=== PATIENT | female | born 1960 | race Caucasian/White ===

== ENCOUNTER 2020-04-15 17:29 | Outpatient (REF) | payer MEDICARE, SELFPAY | END 2020-04-15 17:30 | disposition home or self-care (01) | LOC: HO.10HDLNP 17:29 | PROVIDERS: Visit Provider Internal Medicine | DX: Z20.828 Contact with and (suspected) exposure to other viral communicable diseases (principal) | CPT/HCPCS: 36415; 87635 ==

== ENCOUNTER 2020-04-27 09:02 | Outpatient (REF) | payer MEDICARE, SELFPAY ==
--- NOTE | 2020-04-27 | MM_ITS ---
EXAMINATION: BONE DENSITOMETRY CLINICAL INDICATION: Post menopausal. COMPARISON: Baseline BD dated 02/22/2018. TECHNIQUE: Using a [employer] DXA System (software version: 13.1) manufactured by [employer], dual-energy x-ray absorptiometry was performed of the lumbar spine and left hip. The images are of good technical quality. Summary results are attached. FINDINGS: AP SPINE L1-L4: Current: BMD 0.970 g/cm2, Z-score -0.6, T-score -1.7, osteopenia, 5.8% decrease from baseline (<5% change is not significant). Baseline: BMD 1.030 g/cm2. LEFT FEMUR, NECK: Current: BMD 0.878 g/cm2, Z-score 0.0, T-score -1.2, osteopenia. Baseline: BMD 0.956 g/cm2. LEFT FEMUR, TOTAL: Current: BMD 0.845 g/cm2, Z-score -0.4, T-score -1.3, osteopenia, 3.2% decrease from baseline (<5% change is not significant). Baseline: BMD 0.873 g/cm2. IDENTIFIED RISK FACTORS: Osteoporosis. Low calcium intake. Chronic glucocorticoids. Hysterectomy. Menopause. HISTORY OF FRACTURE: None listed. MEDICATIONS: Calcium supplement and/or multivitamin. Vitamin D. IMPRESSION: 1. DIAGNOSIS: Osteopenia based on the lowest T-score value of -1.7 in the lumbar spine applying World Health Organization criteria. 2. 10-YEAR FRACTURE RISK PREDICTION, FRAX: Major osteoporotic fracture (clinical spine, forearm, hip or shoulder) 12.4%. Hip fracture 1.0%. 3. Treatment Recommendations: NOF guidelines recommend consideration for treatment in postmenopausal women and men age 50 and older presenting with the following: -A hip or vertebral (clinical or morphometric) fracture. -T-score less than or equal to -2.5 at the femoral neck or spine after appropriate evaluation to exclude secondary causes. -Low bone mass at the hip or spine and a 10-year fracture probability by FRAX of greater than or equal to 3% for hip fracture or greater than or equal to 20% for major osteoporotic fracture based on the [place] adapted WHO algorithm. 4. Other Recommendations: All treatment decisions require clinical judgment and consideration of individual patient factors, including patient preferences, comorbidities, previous drug use, risk factors not captured in the FRAX model (e.g. frailty, falls, vitamin D deficiency, increased bone turnover, interval significant decline in bone density) and possible under or overestimation of fracture risk by FRAX. Additional medical evaluation for secondary cause of low bone mineral density may be appropriate. FUTURE SCAN RECOMMENDATION: People with diagnosed cases of osteoporosis or at high risk for fracture should have regular bone mineral density tests. For patients eligible for Medicare, routine testing is allowed once every 2 years. The testing frequency can be increased to one year for patients who have rapidly progressing disease, those who are receiving or discontinuing medical therapy to restore bone mass, or have additional risk factors.
--- NOTE | 2020-04-27 | MM_ITS ---
EXAMINATION: MM SCREENING DIGITAL BREAST TOMOSYNTHESIS, BILATERAL CLINICAL INFORMATION: Screening. Asymptomatic. The lifetime risk of breast cancer based on the Tyrer-Cuzick Model is 7%. COMPARISON: Mammography: 04/22/2019, 02/22/2018 TECHNIQUE: Digital breast tomosynthesis is performed in both the craniocaudal and mediolateral oblique views along with computer-aided detection (CAD). Synthesized 2D images are generated from the tomosynthesis. Additional left MLO view is provided. FINDINGS: There are scattered areas of fibroglandular density (ACR BI-RADS breast composition Category b). There are no significant masses, abnormal calcifications, or other abnormalities. There is fine fibronodular parenchymal pattern similar to prior studies. No significant changes. IMPRESSION: No mammographic evidence of malignancy. ASSESSMENT: BI-RADS 1: Negative RECOMMENDATION: Routine annual mammography screening. This patient's information was entered into a reminder system with a target due date for their next mammogram.
[2020-04-27 11:49] LABS: Cholesterol 213 mg/dL; HDL Cholesterol 57 mg/dL; LDL Cholesterol Calculated 128 mg/dl; Triglycerides 144 mg/dL
[2020-04-27 12:15] LABS: Free T4 (Free Thyroxine) 1.15 ng/dL (0.71-1.85); Thyroid Stimulating Hormone 0.99 mIU/mL (0.32-4.0); Vitamin D 25-OH Total 42.8 ng/mL (>30)
== END 2020-04-27 09:03 | disposition home or self-care (01) ==
LOC: HO.MAMMO 09:02
PROVIDERS: PCP Internal Medicine; Visit Provider Internal Medicine
DX: Z12.31 Encounter for screening mammogram for malignant neoplasm of breast (principal); Z13.820 Encounter for screening for osteoporosis; M81.0 Age-related osteoporosis without current pathological fracture; E58 Dietary calcium deficiency; E55.9 Vitamin D deficiency, unspecified; E03.9 Hypothyroidism, unspecified; E78.00 Pure hypercholesterolemia, unspecified; Z79.52 Long term (current) use of systemic steroids; Z90.710 Acquired absence of both cervix and uterus; M35.00 Sjogren syndrome, unspecified; Z78.0 Asymptomatic menopausal state
CPT/HCPCS: 77063; 77067; 77080; 80061; 82306; 84439; 84443

== ENCOUNTER 2021-01-11 08:23 | Day surgery (SDC) | payer MEDICARE, SELFPAY ==
[2021-01-05 10:30] VITALS: BMI 25.0
--- NOTE | 2021-01-10 09:05 | HO.ANESPROP2 ---
HPI - Anesthesia Eval Consult details Narrative: 60yo F for Colonoscopy PMFSH Past Medical History Medical History COVID-19 vaccine series completed Deaf HTN (hypertension) Hypothyroidism Low back pain Osteoporosis PONV (postoperative nausea and vomiting) Sjogren's syndrome Surgical History Surgical History History of hernia repair Hx of colonoscopy Hx of hysterectomy Social History Social History Patient Tobacco Use Status: Never used Tobacco Use of substances other than those prescribed or required for medical reasons: Yes Substance Use Frequency: Daily Are you DNR?: No Advance Directives: No Advance Directives Information Provided: No Advance Directives on File: No Meds Allergies Allergy/AdvReac Type Severity Reaction Status Date / Time diclofenac Allergy Unknown Verified 01/05/21 10:29 Home Medications Medication Instructions Recorded Confirmed Last Taken Type Restasis 1 drp OPHTHALMIC (EYE) BID 01/05/21 01/05/21 Unknown History hydroxychloroquine 1 tab PO DAILY 01/05/21 01/05/21 Unknown History levothyroxine 1 tab PO DAILY 01/05/21 01/05/21 01/11/21 07:30 History lisinopril 1 tab PO DAILY 01/05/21 01/05/21 Unknown History Exam Exam Date and Time: January 10, 2021 0905 Height,Weight and Vital Signs: Height 5 ft 7 in Weight 72.575 kg Assessment and Plan Assessment Anesthesia Assessment: Chart Reviewed
[2021-01-11 09:10] VITALS: BP 147/79; PULSE 74; RESP 18; TEMP 36.6; O2SAT 95
[2021-01-11] MEDS: Lactated Ringers 1,000 ML 100 ML IVCONT (09:31)
--- NOTE | 2021-01-11 09:49 | MHC.SHP ---
Pre-Procedural Eval Section A Date of Service: 01/11/21 The patient is an INPATIENT: No Changes since office visit: No Cold of Flu in the past 2 weeks, No New Medical Problems, No Changes in Medication and No Patient answered all questions The History & Physical has been completed within 30 days and I have reviewed it.: Yes Section B Chief Complaint: screening Allergies: Allergies Allergy/AdvReac Type Severity Reaction Status Date / Time diclofenac Allergy Unknown Verified 01/05/21 10:29 Plan I have reviewed the history and physical and performed a pertinent physical examination on my patient. No changes have occurred unless specified.
--- NOTE | 2021-01-11 10:09 | HO.ANESPROP2 ---
[facility] Past Medical History Medical History COVID-19 vaccine series completed Deaf HTN (hypertension) Hypothyroidism Low back pain Osteoporosis PONV (postoperative nausea and vomiting) Sjogren's syndrome Surgical History Surgical History History of hernia repair Hx of colonoscopy Hx of hysterectomy Social History Social History Patient Tobacco Use Status: Never used Tobacco Use of substances other than those prescribed or required for medical reasons: Yes Substance Use Frequency: Daily Are you DNR?: No Advance Directives: No Advance Directives Information Provided: No Advance Directives on File: No Meds Allergies Allergy/AdvReac Type Severity Reaction Status Date / Time diclofenac Allergy Unknown Verified 01/05/21 10:29 Active Medications: Current Medications Generic Name Dose Route Start Last Admin Trade Name Freq PRN Reason Stop Dose Admin Lactated Ringer's 1,000 mls @ 100 mls/hr 01/11/21 09:00 01/11/21 09:31 Lr IVCONT 100 mls/hr .Q10H KRISTEN Administration Home Medications Medication Instructions Recorded Confirmed Last Taken Type cyclosporine [Restasis] 1 drp OPHTHALMIC (EYE) BID 01/05/21 01/05/21 Unknown History hydroxychloroquine 1 tab PO DAILY 01/05/21 01/05/21 Unknown History levothyroxine 1 tab PO DAILY 01/05/21 01/05/21 01/11/21 07:30 History lisinopril 1 tab PO DAILY 01/05/21 01/05/21 Unknown History Exam Exam Date and Time: January 11, 2021 1009 Height,Weight and Vital Signs: Height 5 ft 7 in Weight 72.575 kg Last Vital Signs Temp 97.8 F 01/11/21 09:10 Pulse 74 01/11/21 09:10 Resp 18 01/11/21 09:10 BP 147/79 H 01/11/21 09:10 Pulse Ox 95 01/11/21 09:10 Airway Mallampati Class: II TM Dist: >3cm Neck ROM: Full Heart: RRR Lungs: CTA
[2021-01-11 10:25] VITALS: BP 122/94; PULSE 96; RESP 16; TEMP 36.9; O2SAT 96
--- NOTE | 2021-01-11 10:30 | P.BOP_ITS ---
Brief Operative Note Date of Service: 01/11/21 Pre-op diagnosis: screening Post-op diagnosis: same Procedure: colonoscopy Surgeon: Santino Villalobos Anesthesia: MAC Was an Assistant Administrator used for this Procedure?: No Estimated blood loss (mL): 0 Pathology: none sent Condition: stable Disposition: PACU
[2021-01-11 10:40] VITALS: BP 150/62; PULSE 65; RESP 16; TEMP 36.6; O2SAT 99
--- NOTE | 2021-01-11 20:38 | OP_ITS ---
SURGEON: Santino Villalobos MD INDICATIONS: Colon cancer screening. PREOPERATIVE DIAGNOSIS: POSTOPERATIVE DIAGNOSIS: PROCEDURE PERFORMED: Colonoscopy to the terminal ileum. ESTIMATED BLOOD LOSS: COMPLICATIONS: ANESTHESIA: ASSISTANTS: SPECIMENS: MEDICATIONS: Monitored anesthesia care. DESCRIPTION OF PROCEDURE: History and physical performed. The risks and benefits of the procedure were explained to the patient. Informed consent was obtained. The patient was placed in the left lateral decubitus position. A digital rectal exam was performed and was found to be normal. The Olympus pediatric video colonoscope was introduced into the rectum and advanced to the cecum without difficulty. The cecum was identified by transillumination, palpation, and identification of ileocecal valve. Examination was performed, and the scope was removed. She tolerated the procedure well and was taken to recovery area in stable condition. FINDINGS: The terminal ileum was examined and appeared normal. The visualized colonic mucosa was normal. The quality of the prep was good. No polyps were identified. Retroflexed examination was normal. IMPRESSION: Normal screening colonoscopy. RECOMMENDATIONS: 1. Follow up as needed. 2. Repeat colonoscopy is recommended in 10 years for average risk individuals. MD KALA Taylor/SANDOVAL / [phone]
== END 2021-01-11 11:15 | disposition home or self-care (01) ==
PROVIDERS: PCP Internal Medicine; Visit Provider Internal Medicine Gastroenterology
PROC: 0DJD8ZZ Inspection of Lower Intestinal Tract, Via Natural or Artificial Opening Endoscopic (ICD-10-PCS; CPT 45378; principal; 2021-01-11 10:10)
DX: Z12.11 Encounter for screening for malignant neoplasm of colon (principal); I10 Essential (primary) hypertension; M81.0 Age-related osteoporosis without current pathological fracture; M35.00 Sjogren syndrome, unspecified; E03.9 Hypothyroidism, unspecified; H91.90 Unspecified hearing loss, unspecified ear; Z79.899 Other long term (current) drug therapy; Z79.82 Long term (current) use of aspirin
CPT/HCPCS: G0121

== ENCOUNTER 2021-05-13 13:12 | Outpatient (REF) | payer MEDICARE, SELFPAY ==
--- NOTE | ~2021-05-13 | MM_ITS ---
EXAMINATION: MM SCREENING DIGITAL BREAST TOMOSYNTHESIS, BILATERAL CLINICAL INFORMATION: Screening. Asymptomatic. The lifetime risk of breast cancer based on the Tyrer-Cuzick Model is 5%. COMPARISON: Mammography: 04/27/2020, 04/22/2019, 02/22/2018 TECHNIQUE: Digital breast tomosynthesis is performed in both the craniocaudal and mediolateral oblique views along with computer-aided detection (CAD). Synthesized 2D images are generated from the tomosynthesis. FINDINGS: There are scattered areas of fibroglandular density (ACR BI-RADS breast composition Category b). There are no significant masses, abnormal calcifications, or other abnormalities. The axilla and skin contours are unremarkable. No significant changes. MM/MM tomosynthesis screening BI IMPRESSION: There are no significant changes from prior study. ASSESSMENT: BI-RADS 1: Negative RECOMMENDATION: Routine annual mammography screening. This patient's information was entered into a reminder system with a target due date for their next mammogram.
== END 2021-05-13 13:13 | disposition home or self-care (01) ==
LOC: HO.MAMMO 13:12
PROVIDERS: Visit Provider Internal Medicine
DX: Z12.31 Encounter for screening mammogram for malignant neoplasm of breast (principal)
CPT/HCPCS: 77063; 77067

== ENCOUNTER 2022-05-01 14:25 | Outpatient (REF) | payer MEDICARE, SELFPAY ==
[2022-05-01 16:54] LABS: Appearance Urine Cloudy; Color Urine Yellow; Glucose Urine UA Negative (Negative); Leukocyte Esterase Urine Large (3+) (Negative); Nitrite Urine Negative (Negative); PH 5.5 (5.0-9.0); UMIC TRIGGER UACC YES; Urine Blood Moderate (2+) (Negative); Urine Ketones Negative (Negative); Urine Protein 30 (1+) mg/dL (Neg-Trace)
[2022-05-01 18:13] LABS: Bacteria Urine 3+ (None Seen); Squamous Epithelial Cell Urine 0-2 /HPF (0-2); UACC Culture Trigger YES; WBC Urine >50 /HPF (0-5)
== END 2022-05-01 14:26 | disposition home or self-care (01) ==
LOC: HO.LAB 14:25
PROVIDERS: PCP Internal Medicine; Visit Provider Internal Medicine
DX: R30.0 Dysuria (principal)
CPT/HCPCS: 81001; 87086; 87088

== ENCOUNTER 2022-05-23 08:40 | Outpatient (REF) | payer MEDICARE, SELFPAY ==
--- NOTE | ~2022-05-23 | MM_ITS ---
EXAMINATION: MM SCREENING DIGITAL BREAST TOMOSYNTHESIS, BILATERAL CLINICAL INFORMATION: Screening. Asymptomatic. COMPARISON: Mammography: May 13, 2021 and studies dating back to August 25, 2015 TECHNIQUE: Digital breast tomosynthesis is performed in both the craniocaudal and mediolateral oblique views along with computer-aided detection (CAD). Synthesized 2D images are generated from the tomosynthesis. FINDINGS: There are scattered areas of fibroglandular density (ACR BI-RADS breast composition Category b). There are no significant masses, abnormal calcifications, or other abnormalities. MM/MM tomosynthesis screening BI IMPRESSION: No significant changes ASSESSMENT: BI-RADS 1: Negative RECOMMENDATION: Routine annual mammography screening. This patient's information was entered into a reminder system with a target due date for their next mammogram.
== END 2022-05-23 08:41 | disposition home or self-care (01) ==
LOC: HO.MAMMO 08:40
PROVIDERS: PCP Internal Medicine; Visit Provider Internal Medicine
DX: Z12.31 Encounter for screening mammogram for malignant neoplasm of breast (principal)
CPT/HCPCS: 77063; 77067

== ENCOUNTER 2022-07-03 07:01 | Outpatient (REF) | payer MEDICARE, SELFPAY ==
[2022-07-03 07:09] LABS: MANUAL DIFF FLAG NO
[2022-07-03 07:59] LABS: Basophils Percent Auto 0.5 % (0-2); Eosinophils Absolute Auto 0.1 X10*3/uL (0.0-0.4); Eosinophils Percent Auto 2.5 % (0-4); Hematocrit 40.4 % (37.0-47.0); Hemoglobin 13.4 g/dl (12.0-16.0); Imm Gran Abs Auto 0.01 X10*3/uL (0.00-0.03); Imm Gran Pct Auto 0.3 % (0.0-0.4); Lymphocytes Absolute Auto 0.9 X10*3/uL (1.2-4.9); Lymphocytes Percent Auto 24.3 % (20-40); Mean Corpuscular HGB Conc 33.2 g/dl (31.0-35.0); Mean Corpuscular Hemoglobin 29.3 pg (27.0-33.0); Mean Corpuscular Volume 88.4 fL (80.0-98.0); Mean Platelet Volume 8.2 fL (9.4-12.3); Monocytes Absolute Auto 0.3 X10*3/uL (0.1-1.2); Neutrophils Absolute Auto 2.3 x10*3/uL (2.0-8.3); Neutrophils Percent Auto 63.4 % (45-73); Platelet Count 213 X10*3/uL (160-400); Red Blood Count 4.57 X10*6/uL (4.20-5.50); Red Cell Distribution Width 12.6 % (11.0-16.0); White Blood Count 3.7 X10*3/uL (4.8-10.8)
[2022-07-03 08:58] LABS: Alanine Aminotransferase 14 U/L (0-31); Albumin Level 4.2 g/dL (3.5-5.0); Alkaline Phosphatase 56 U/L (39-117); Anion Gap 13 (12-20); Aspartate Amino Transferase 15 U/L (5-31); Bilirubin Total 0.8 mg/dL (0.0-1.0); Blood Urea Nitrogen 14 mg/dL (9-16); Calcium 9.7 mg/dL (8.4-10.2); Carbon Dioxide 27 mmol/L (22-29); Chloride 106 mmol/L (96-108); Cholesterol 195 mg/dL; Estimated Glomerular Filt Rate > 60; Free T4 (Free Thyroxine) 1.11 ng/dL (0.71-1.85); Glucose Random 81 mg/dL (60-115); HDL Cholesterol 65 mg/dL; LDL Cholesterol Calculated 110 mg/dl; Potassium 4.5 mmol/L (3.3-5.1); Sodium 141 mmol/L (135-145); Thyroid Stimulating Hormone 0.91 uIU/mL (0.32-4.0); Total Protein 6.4 g/dL (6.5-8.0); Triglycerides 103 mg/dL; Vitamin D 25-OH Total 39.5 ng/mL (>30)
== END 2022-07-03 07:02 | disposition home or self-care (01) ==
LOC: HO.LAB 07:01
PROVIDERS: PCP Internal Medicine; Visit Provider Internal Medicine
DX: Z00.00 Encounter for general adult medical examination without abnormal findings (principal); E03.9 Hypothyroidism, unspecified; M85.80 Other specified disorders of bone density and structure, unspecified site
CPT/HCPCS: 36415; 80053; 80061; 82306; 84439; 84443; 85025

== ENCOUNTER 2022-09-25 07:57 | Outpatient (REF) | payer MEDICARE, SELFPAY ==
--- NOTE | ~2022-09-25 | MM_ITS ---
EXAMINATION: BONE DENSITOMETRY CLINICAL INDICATION: Sjogren syndrome. COMPARISON: Previous BD dated 04/27/2020 and baseline BD dated 02/22/2018. TECHNIQUE: Using a [employer] DXA System (software version: 13.1) manufactured by [employer], dual-energy x-ray absorptiometry was performed of the lumbar spine and left hip. The images are of good technical quality. Summary results are attached. FINDINGS: AP SPINE L1-L4 (excluding L2): The data of L1-L4 has been changed to exclude the L2 vertebral body, because degenerative changes at this level may cause overestimation of lumbar spine density. Current: BMD 0.929 g/cm2, Z-score -0.7, T-score -2.0, osteopenia, 3.2% decrease from previous, 10.0% decrease from baseline (<5% change is not significant). Prior: BMD 0.960 g/cm2. Baseline: BMD 1.032 g/cm2. LEFT FEMUR, NECK: Current: BMD 0.840 g/cm2, Z-score -0.1, T-score -1.4, osteopenia. Prior: BMD 0.878 g/cm2. Baseline: BMD 0.956 g/cm2. LEFT FEMUR, TOTAL: Current: BMD 0.825 g/cm2, Z-score -0.5, T-score -1.4, osteopenia, 2.4% decrease from previous, 5.5% decrease from baseline (<5% change is not significant). Prior: BMD 0.845 g/cm2. Baseline: BMD 0.873 g/cm2. IDENTIFIED RISK FACTORS: Height loss. Menopause. Hysterectomy. Glucocorticoids (chronic). HISTORY OF FRACTURE: None listed. MEDICATIONS: Vitamin D. MM/XR DEXA axial skeleton IMPRESSION: 1. DIAGNOSIS: Osteopenia based on the lowest T-score value of -2.0 in the lumbar spine applying World Health Organization criteria. 2. 10-YEAR FRACTURE RISK PREDICTION, FRAX: Major osteoporotic fracture (clinical spine, forearm, hip or shoulder) 13.8%. Hip fracture 1.6%. 3. Treatment Recommendations: NOF guidelines recommend consideration for treatment in postmenopausal women and men age 50 and older presenting with the following: -A hip or vertebral (clinical or morphometric) fracture. -T-score less than or equal to -2.5 at the femoral neck or spine after appropriate evaluation to exclude secondary causes. -Low bone mass at the hip or spine and a 10-year fracture probability by FRAX of greater than or equal to 3% for hip fracture or greater than or equal to 20% for major osteoporotic fracture based on the [place] adapted WHO algorithm. 4. Other Recommendations: All treatment decisions require clinical judgment and consideration of individual patient factors, including patient preferences, comorbidities, previous drug use, risk factors not captured in the FRAX model (e.g. frailty, falls, vitamin D deficiency, increased bone turnover, interval significant decline in bone density) and possible under or overestimation of fracture risk by FRAX. Additional medical evaluation for secondary cause of low bone mineral density may be appropriate. FUTURE SCAN RECOMMENDATION: People with diagnosed cases of osteoporosis or at high risk for fracture should have regular bone mineral density tests. For patients eligible for Medicare, routine testing is allowed once every 2 years. The testing frequency can be increased to one year for patients who have rapidly progressing disease, those who are receiving or discontinuing medical therapy to restore bone mass, or have additional risk factors.
== END 2022-09-25 07:58 | disposition home or self-care (01) ==
LOC: HO.MAMMO 07:57
PROVIDERS: PCP Internal Medicine; Visit Provider Internal Medicine
DX: Z13.820 Encounter for screening for osteoporosis (principal); M35.00 Sjogren syndrome, unspecified; Z78.0 Asymptomatic menopausal state
CPT/HCPCS: 77080

== ENCOUNTER 2023-03-23 11:53 | Outpatient (REF) | payer MEDICARE, SELFPAY ==
[2023-03-23 13:20] LABS: MANUAL DIFF FLAG NO
[2023-03-23 13:26] LABS: Appearance Urine Clear; Color Urine Yellow; Glucose Urine UA Negative (Negative); Leukocyte Esterase Urine Trace (Negative); Nitrite Urine Negative (Negative); PH 5.5 (5.0-9.0); UMIC TRIGGER UACC YES; Urine Blood Small (1+) (Negative); Urine Ketones Negative (Negative); Urine Protein Negative (Neg-Trace)
[2023-03-23 13:30] LABS: Basophils Percent Auto 0.3 % (0-2); Eosinophils Percent Auto 0.7 % (0-4); Hemoglobin 14.1 g/dl (12.0-16.0); Imm Gran Abs Auto 0.01 X10*3/uL (0.00-0.03); Imm Gran Pct Auto 0.2 % (0.0-0.4); Lymphocytes Percent Auto 17.6 % (20-40); Mean Corpuscular HGB Conc 34.4 g/dl (31.0-35.0); Mean Corpuscular Hemoglobin 29.6 pg (27.0-33.0); Mean Corpuscular Volume 86.1 fL (80.0-98.0); Mean Platelet Volume 8.6 fL (9.4-12.3); Monocytes Absolute Auto 0.5 X10*3/uL (0.1-1.2); Monocytes Percent Auto 8.3 % (2-11); Neutrophils Absolute Auto 4.2 x10*3/uL (2.0-8.3); Neutrophils Percent Auto 72.9 % (45-73); Platelet Count 224 X10*3/uL (160-400); Red Blood Count 4.76 X10*6/uL (4.20-5.50); Red Cell Distribution Width 12.1 % (11.0-16.0); White Blood Count 5.8 X10*3/uL (4.8-10.8)
[2023-03-23 13:44] LABS: Bacteria Urine None Seen (None Seen); Hyaline Casts Urine 0-2 /LPF (0-2); RBC Urine 0-2 /HPF (0-2); Squamous Epithelial Cell Urine 0-2 /HPF (0-2); WBC Urine 0-5 /HPF (0-5)
[2023-03-23 14:06] LABS: Alanine Aminotransferase 15 U/L (0-31); Albumin Level 4.6 g/dL (3.5-5.0); Alkaline Phosphatase 64 U/L (39-117); Anion Gap 14 (12-20); Aspartate Amino Transferase 18 U/L (5-31); Bilirubin Total 0.6 mg/dL (0.0-1.0); Blood Urea Nitrogen 14 mg/dL (9-16); C Reactive Protein 0.16 mg/dL (< or = 0.50); Calcium 10.1 mg/dL (8.4-10.2); Carbon Dioxide 26 mmol/L (22-29); Chloride 102 mmol/L (96-108); Estimated Glomerular Filt Rate > 60; Glucose Random 91 mg/dL (60-115); Potassium 3.6 mmol/L (3.3-5.1); Sodium 138 mmol/L (135-145); Total Protein 7.3 g/dL (6.5-8.0)
[2023-03-23 14:07] LABS: Free T4 (Free Thyroxine) 1.09 ng/dL (0.71-1.85); Thyroid Stimulating Hormone 1.28 uIU/mL (0.32-4.0)
[2023-03-23 15:03] LABS: Erythrocyte Sedimentation Rate 5 MM/HR (0-20)
== END 2023-03-23 11:54 | disposition home or self-care (01) ==
LOC: HO.10HDL 11:53
PROVIDERS: Visit Provider Internal Medicine
DX: R51.9 Headache, unspecified (principal); I10 Essential (primary) hypertension; E03.9 Hypothyroidism, unspecified; R21 Rash and other nonspecific skin eruption; M35.00 Sjogren syndrome, unspecified; R82.90 Unspecified abnormal findings in urine
CPT/HCPCS: 36415; 80053; 81001; 84439; 84443; 85025; 85652; 86140; 87086

== ENCOUNTER 2023-05-29 09:08 | Outpatient (REF) | payer MEDICARE, SELFPAY | END 2023-05-29 09:09 | disposition home or self-care (01) | LOC: HO.MAMMO 09:08 | PROVIDERS: PCP Internal Medicine; Visit Provider Internal Medicine | DX: Z12.31 Encounter for screening mammogram for malignant neoplasm of breast (principal) | CPT/HCPCS: 77063; 77067 ==

== ENCOUNTER → 2023-05-29 09:30 | Outpatient (BNV) | payer MEDICARE, SELFPAY | PROVIDERS: PCP Internal Medicine; Visit Provider Radiology Diagnostic Radiology | DX: Z12.31 Encounter for screening mammogram for malignant neoplasm of breast (principal) | CPT/HCPCS: 77063; 77067 ==

== ENCOUNTER 2023-12-17 14:49 | Outpatient (REF) | payer OTHER, SELFPAY ==
[2023-12-17 14:58] LABS: MANUAL DIFF FLAG NO
[2023-12-17 15:35] LABS: Basophils Percent Auto 0.5 % (0-2); Eosinophils Percent Auto 0.5 % (0-4); Hematocrit 41.1 % (37.0-47.0); Hemoglobin 14.5 g/dl (12.0-16.0); Imm Gran Abs Auto 0.01 X10*3/uL (0.00-0.03); Imm Gran Pct Auto 0.2 % (0.0-0.4); Lymphocytes Absolute Auto 1.2 X10*3/uL (1.2-4.9); Lymphocytes Percent Auto 18.8 % (20-40); Mean Corpuscular HGB Conc 35.3 g/dl (31.0-35.0); Mean Corpuscular Hemoglobin 29.9 pg (27.0-33.0); Mean Corpuscular Volume 84.7 fL (80.0-98.0); Mean Platelet Volume 8.1 fL (9.4-12.3); Monocytes Absolute Auto 0.5 X10*3/uL (0.1-1.2); Monocytes Percent Auto 8.3 % (2-11); Neutrophils Absolute Auto 4.4 x10*3/uL (2.0-8.3); Neutrophils Percent Auto 71.7 % (45-73); Platelet Count 323 X10*3/uL (160-400); Red Blood Count 4.85 X10*6/uL (4.20-5.50); Red Cell Distribution Width 11.9 % (11.0-16.0); White Blood Count 6.1 X10*3/uL (4.8-10.8)
[2023-12-17 16:24] LABS: Alanine Aminotransferase 17 U/L (0-31); Albumin Level 4.8 g/dL (3.5-5.0); Alkaline Phosphatase 60 U/L (39-117); Anion Gap 14 (12-20); Aspartate Amino Transferase 20 U/L (5-31); Bilirubin Total 0.5 mg/dL (0.0-1.0); Blood Urea Nitrogen 13 mg/dL (9-16); Calcium 10.5 mg/dL (8.4-10.2); Carbon Dioxide 26 mmol/L (22-29); Chloride 102 mmol/L (96-108); Cholesterol 236 mg/dL (<200); Estimated Glomerular Filt Rate > 60; Glucose Random 108 mg/dL (60-115); Potassium 3.8 mmol/L (3.3-5.1); Sodium 138 mmol/L (135-145); Total Protein 7.9 g/dL (6.5-8.0)
[2023-12-17 16:42] LABS: Free T4 (Free Thyroxine) 1.07 ng/dL (0.71-1.85); Thyroid Stimulating Hormone 2.05 uIU/mL (0.32-4.0); Vitamin D 25-OH Total 57.4 ng/mL (>30)
== END 2023-12-17 14:50 | disposition home or self-care (01) ==
LOC: HO.LAB 14:49
PROVIDERS: PCP Internal Medicine; Visit Provider Internal Medicine
DX: I10 Essential (primary) hypertension (principal); E03.9 Hypothyroidism, unspecified; M35.00 Sjogren syndrome, unspecified
CPT/HCPCS: 36415; 80053; 82306; 82465; 84439; 84443; 85025

== ENCOUNTER 2024-02-20 15:26 | Outpatient (REF) | payer MEDICARE, SELFPAY | END 2024-02-20 15:27 | disposition home or self-care (01) | LOC: HO.SH 15:26 | PROVIDERS: Visit Provider Internal Medicine | DX: Z13.89 Encounter for screening for other disorder (principal) ==

== ENCOUNTER 2024-06-04 09:07 | Outpatient (REF) | payer OTHER, SELFPAY ==
--- NOTE | ~2024-06-04 | MM_ITS ---
EXAMINATION: MM SCREENING DIGITAL BREAST TOMOSYNTHESIS, BILATERAL CLINICAL INFORMATION: Screening. Asymptomatic. COMPARISON: Mammography: Comparison is made with available priors TECHNIQUE: Digital breast mammography with tomosynthesis is performed in both the craniocaudal and mediolateral oblique views along with computer-aided detection (CAD). FINDINGS: There are scattered areas of fibroglandular density (ACR BI-RADS breast composition Category b). There are no significant masses, abnormal calcifications, or other abnormalities. MM/MM tomosynthesis screening BI IMPRESSION: No mammographic evidence of malignancy. ASSESSMENT: BI-RADS BI-RADS 1 - Negative RECOMMENDATION: Routine annual mammography screening. 1 year F/U This examination should not preclude the clinical evaluation of a suspicious palpable abnormality. This patient's information was entered into a reminder system with a target due date for their next mammogram. Electronically signed by: Paola Jacome DO 06/11/2024 12:23 PM SONIA
== END 2024-06-04 09:08 | disposition home or self-care (01) ==
LOC: HO.MAMMO 09:07
PROVIDERS: PCP Internal Medicine; Visit Provider Internal Medicine
DX: Z12.31 Encounter for screening mammogram for malignant neoplasm of breast (principal)
CPT/HCPCS: 77063; 77067

== ENCOUNTER → 2024-06-04 09:30 | Outpatient (BNV) | payer OTHER, SELFPAY | PROVIDERS: PCP Internal Medicine; Visit Provider Internal Medicine | DX: Z12.31 Encounter for screening mammogram for malignant neoplasm of breast (principal) | CPT/HCPCS: 77063; 77067 ==

== ENCOUNTER 2024-08-15 09:45 | Outpatient (REF) | payer SELFPAY ==
--- NOTE | 2024-08-15 14:37 | MHC.AU.HA3 ---
Hearing Instrument Follow-Up- Binaural Date of Visit: 08/15/24 Right Ear: [place], Model, Color, Serial Number: Justin Crawford L 70 UP jermaine S#[id number] Electronics Engineering Technician Repair Warranty: 07/24/2027 Electronics Engineering Technician Loss and Damage Warranty: 07/24/2027 [facility] Service Plan: 07/23/25 Battery Size: 675 Earmold/Dome/CShell/SlimTip:acrylic shell Dispensed By: [facility] Date of Fittin07/23/24 Left Ear: Make, Model, Color, Serial Number: Justin Guerrierida L 70 UP jermaine S#[id number] Electronics Engineering Technician Repair Warranty: 07/24/2027 Electronics Engineering Technician Loss and Damage Warranty: 07/24/2027 [facility] Service Plan: 07/23/25 Battery Size: 675 Earmold/Dome/CShell/SlimTip: acrylic shell Dispensed By: [facility] Date of Fittin07/23/24 Follow-Up Summary: Seen for follow up. Reports left tube is too long, aid comes up over ear. Reports overall everything has been a bit too loud, she is startled by loud sounds. Notes feeling the right aid is louder than the left. Trimmed left tube. Fit improved. Ended up decreasing gain overall slightly right and increasing gain left. Decreased MPO. Kinjal will try these settings and return for additional follow up. Recommendations: Recommendations: An additional follow-up was scheduled to monitor progress. Diagnosis Code(s): Primary Diagnosis: H90.3 Bilateral Sensorineural Hearing Loss Signature: Provider: Torey Becerril, [facility]
== END 2024-08-15 09:46 | disposition home or self-care (01) ==
LOC: HO.HAP 09:45
PROVIDERS: Visit Provider Internal Medicine
DX: Z13.89 Encounter for screening for other disorder (principal)

== ENCOUNTER 2024-11-20 07:58 | Outpatient (REF) | payer MEDICARE, SELFPAY ==
--- NOTE | ~2024-11-20 | MM_ITS ---
EXAMINATION: DXA BONE DENSITY AXIAL HISTORY: OSTEOPENIA TECHNIQUE: [place] Dual energy absorptiometry (DEXA) of the lumbar spine, total left hip, and femoral neck was performed. COMPARISON: Comparison is made with the prior examination dated 09/25/2022. FINDINGS: The bone mineral density of the lumbar spine is 0.996 with a T-score of -1.5, and a Z-score of -0.1. This is indicative of osteopenia. This represents a BMD change of 2.7% compared to the prior exam. This is not statistically significant. The bone mineral density of the left total hip is 0.774 with a T-score of -1.9, and a Z-score of -0.7. This is indicative of osteopenia. This represents a BMD change of -6.2% compared to the prior exam. This is statistically significant. The bone mineral density of the left femoral neck is 0.830 with a T-score of -1.5, and a Z-score of -0.1. This is indicative of osteopenia. This represents a BMD change of -1.2% compared to the prior exam. FRACTURE RISK: The FRAX index suggests a ten year probability of major osteoporotic fracture of 9.4%, and of hip fracture 1.1%. MM/XR DEXA axial skeleton IMPRESSION: Based on bone mineral density, and according to World Health Organization (WHO) criteria, the diagnosis is consistent with osteopenia. All bone density values are in grams per centimeter squared (g/cm2). Statistically, 68% of repeat scans fall within 1 SD (+/- 0.010 g/cm2 for AP spine L1-L4) and 1 SD (+/- 0.012 g/cm2 for femur total) FRAX is a trademark of the [employer]'s [employer], a World Health Organization (WHO) Collaborating Center. Electronically signed by: Owen Barbosa MD 11/20/2024 08:56 AM EDT
--- OUTSIDE RECORDS SUMMARY | 2024-11-20 08:02 | XMS_ITS | Patient Health Record ---
Author Organization [facility] Address [address] [place] [address] Care Team Providers Care Research Geneticist Name Role Phone Ari Jean MD Primary Care Provider Santino Scott Jr Unavailable Allergies Allergen (clinical drug ingredient) Drug/Non Drug Allergy documented on EMR Reaction Allergy Type Onset Date Status diclofenac Diclofenac Unknown Drug Allergy Activ e Reason For Referral No Information Medications Medication SIG (Take, Route, Frequency, Duration) Notes Start Date End Date Status Levothyroxine Sodium 50 MCG Orally Active Vitamin D 25 MCG (1000 UT) Orally Active Lisinopril 10 MG Orally Act elizabeth Restasis 0.05 % Ophthalmic Act elizabeth Excedrin Extra Strength PRN Active Tylenol PRN Active MiraLax (colon prep) 8.3 oun ce ((238) grams mixed with Gatorade or Crystal Light orally begin at 5:00 p.m. the day before the procedure for 1 day 12/22/2020 Active Hydroxychloroquine Sulfate 2 00 MG Orally Active Immunizations Vaccine Route Administration Date Status Comme nts Influenza Unknown 04/28/2020 Administered Influenza Unknown 04/28/2020 Administered Social History Tobacco Use: Social History Observation Description Date Details (start date - stop date) Never Smoker NA - NA Tobacco Use/Smoking Question Answer Notes Patient is a nonsmoker Alcohol Screen Question Answer Notes Did you have a drink containing alcohol in the p ast year? No Points 0 Interpretation Negative Problems Problem Type SNOMED Code ICD Code Onset Dates Problem Status W/U Status Risk Notes Problem [id number] Colon cancer screening (Z12.11) Active confirmed Problem [id number] [facility] (current) use of aspirin (Z79.82) Active confirmed Plan Of Treatment Future Test Test Name Order Date COLONOSCOPY 12/22/2020 Insurance Providers Payer Name Payer Address Payer Phone Subscriber Number Group Number Insured Name Patient Relationship to Insured Coverage Start Date Coverage End Date MEDICARE OF [employer] [address] [place] [id number] STACEY MARTINEZ BOLA Self - patient is the insured Medical (General) History Medical History History ICD Code hypertension hashimotos thyroiditis sjogren syndrome osteopenia pituitary tumor hearing impaired Surgical History Surgery Date(Month/Year) hernia repair 1959 hysterectomy 1969 adenoidectomy 2002
== END 2024-11-20 07:59 | disposition home or self-care (01) ==
LOC: HO.MAMMO 07:58
PROVIDERS: PCP Internal Medicine; Visit Provider Internal Medicine Rheumatology
DX: Z13.820 Encounter for screening for osteoporosis (principal); M85.89 Other specified disorders of bone density and structure, multiple sites
CPT/HCPCS: 77080

== ENCOUNTER → 2024-11-20 08:15 | Outpatient (BNV) | payer MEDICARE, SELFPAY | PROVIDERS: PCP Internal Medicine; Visit Provider Radiology Diagnostic Radiology | DX: E28.39 Other primary ovarian failure (principal) | CPT/HCPCS: 77080 ==

== ENCOUNTER 2024-12-26 09:23 | Outpatient (AMB) | payer MEDICARE, SELFPAY ==
[2024-12-26 09:30] VITALS: BP 136/80; PULSE 64; TEMP 36.6; O2SAT 99; BMI 22.8
--- NOTE | 2024-12-26 09:30 | A.OFFPC_ITS ---
Vital Signs 12/26/24 09:30 Height 5 ft 8 in Weight 68.039 kg BMI 22.8 BP 136/80 Pulse 64 Pulse Source Pulse Oximeter Temp 98 F Temp Source Axillary Pulse Oximetry (%) 99 Oxygen Delivery Method Room Air Intake Visit Reasons: Routine Micropaleontologist Required: No Accompanied by: Self / Same As Patient Allergies diclofenac Allergy (Verified 12/26/24 09:33) Unknown Tobacco use date assessed: 12/26/24 Fall risk assessment: No Falls in past year Last assessed Fall Risk: 12/26/24 Dental Screening Dental Screen Date: 12/26/24 Did you have a dental visit in the last 12 months?: Yes Did you have a dental problem in the last 6 months where you did not have access to dental care?: No HPI HPI Comments History of Present Illness Details 64-year-old female with history of Sjogr en's syndrome, hypothyroidism, osteoporosis, hypertension, GERD presents to the office today for management of chronic conditions and to establish care. She is deaf and blunger [id number] was used for exam. Hypertension-compliant with lisinopril 10 mg daily. Blood pressure 136/80. Sjogren's syndrome-following with Dr. Sarah Chavez. Controlled on Plaquenil. She also uses medical marijuana, edibles only Hypothyroidism-on levothyroxine Osteopenia-most recent DEXA scan 11/20/2024 with FRAX 9.4%. Calcium supplement discontinued due to mild hypercalcemia. Continues on 2000 units vitamin-D daily but twice weekly does increase to 4000 units daily at the recommendation of her public relations specialist due to knee pain Concerns: Seasonal allergies-using Claritin which is helping with rhinorrhea but still has mild right-sided sinus discomfort and sinus headache. Not currently using nasal sprays or decongestants alergies bothering her sinuses last 2 days, headache, taking claritin 10mg daily. helping but still with sinus pain Health maintenance: Last DEXA scan 11/20/2024 as above-next due 11/2026 Last colonoscopy-12/2020, next due 12/2030-Dr. Villalobos ROS: General: No fevers, malaise, unintentional weight loss HEENT: see hpi Cardiovascular: No chest pain, palpitations, or leg edema Respiratory: No shortness of breath, wheezing, cough MSK: see hpi Neuro: No headaches, weakness, paresthesias Skin: No rashes or lesions EXAM: Constitutional - Awake and Alert, No apparent distress Eyes - PERRL Cardiovascular - S1S2, RRR, No edema Respiratory - Normal lung expansion, Normal respiratory effort, No respiratory distress, CTA bilaterally Extremities - no calf tenderness bilaterally, no swelling Skin - Warm/Dry Neurological - Alert & oriented x3 Psychological - Appropriate affect PFSH Medical History (Updated 12/26/24 @ 10:13 by SAMAN Hankins) GERD (gastroesophageal reflux disease) Hyperlipidemia COVID-19 vaccine series completed Low back pain PONV (postoperative nausea and vomiting) Osteoporosis Hypothyroidism Sjogren's syndrome HTN (hypertension) Deaf Surgical History History of hernia repair Hx of hysterectomy Hx of colonoscopy (~01/11/21) Social History [facility] Tobacco Use Status: Never used Tobacco e-Cigarette/Vaping Use: Never Used service: No Current occupational status: retired Cognitive needs: No Hearing needs: Yes (bilateral hearing aids ) Vision needs: Yes (rx glasses) Questionnaire PHQ-9 Over the last 2 weeks, how often have you been bothered by any of the following problems? 1. Little interest or pleasure in doing things: not at all 2. Feeling down, depressed, or hopeless: not at all 3. Trouble falling or staying asleep, or sleeping too much: more than half the days 4. Feeling tired or having little energy: more than half the days 5. Poor appetite or overeating: several days 6. Feeling bad about yourself - or that you are a failure or have let yourself or your family down: not at all 7. Trouble concentrating on things, such as reading the newspaper or watching television: not at all 8. Moving or speaking so slowly that other people could have noticed. Or the opposite - being so fidgety or restless that you have been moving around a lot more than usual: not at all 9. Thoughts that you would be better off or of hurting yourself in some way: not at all Total score: 5 Source: Developed by Drs. Owen Vicente, Caitie VieyraEliezer and colleagues, with an educational carson from [employer]. Thrive Questionnaire Date Thrive assessed: 12/26/24 I am a: Patient Within the past 12 months, did the food you bought not last and you didn't have the money to get more?: Never true Within the past 12 months, did you worry whether your food would run out before you got money to buy more?: Never true Do you have trouble paying for medicines?: No Do you have trouble getting transportation to medical appointments?: No Do you have trouble paying your heating and electricity bill?: No Do you have trouble taking care of your child, family member or friend?: No Do you have trouble with day-to-day activities such as bathing, preparing meals, shopping, managing finances, etc.?: No Are you currently unemployed and looking for a job?: No Are you interested in more education?: No THRIVE Score: 0 AUDIT C Alcohol Use Questionnaire (AUDIT-C) 1. How often do you have a drink containing alcohol?: Monthly or less 2. How many drinks containing alcohol do you have on a typical day when you are drinking?: 1 or 2 3. How often do you have six or more drinks on one occasion?: Less than monthly Total Score: 2 PARKER-7 AMB Questionnaire PARKER-7 Date PARKER - 7 assessed: 12/26/24 Feeling nervous, anxious, or on edge: 1 = Several days Not being able to stop or control worryin = Not at all Worrying too much about different things: 0 = Not at all Trouble relaxin = Several days Being so restless that it is hard to sit still: 1 = Several days Becoming easily annoyed or irritable: 1 = Several days Feeling afraid as if something awful might happen: 0 = Not at all Total PARKER-7 score (0-4 normal; 5-9 mild; 10-14 moderate; 15-21 severe): 4 Source: Developed by Drs. Owen Vicente, Caitie Vieyra, Eliezer Cruz and colleagues, with an educational carson from [employer]. Physical exam (Primary Care) Vital Signs: Last Vital Signs Temp 98 F 12/26/24 09:30 Pulse 64 12/26/24 09:30 BP 136/80 12/26/24 09:30 Pulse Ox 99 12/26/24 09:30 Oxygen Delivery Method Room Air 12/26/24 09:30 BMI result Body Mass Index 22.8 Tobacco/Smoking Status: Tobacco use Status Tobacco use date assessed 12/26/24 12/26/24 09:36 Patient Tobacco Use Status Never used Tobacco 12/26/24 09:36 e-Cigarette/Vaping Use Never Used 12/26/24 09:36 PHQ-9: PHQ-9 Score PHQ-9: Total score 5 12/26/24 09:50 Thrive Assessment: Date of Thrive Assessment Date Thrive assessed 12/26/24 12/26/24 09:38 Coding Level of Care Code New Pt Level 4 (30892) Complex EM visit Add On G2211 Diagnoses Hyperlipidemia E78.5 Osteoporosis M81.0 Hypothyroidism E03.9 HTN (hypertension) I10 GERD (gastroesophageal reflux disease) K21.9 Assessment & Plan Assessment & Plan (1) Hyperlipidemia: Code(s): E78.5 - Hyperlipidemia, unspecified Category: Medical Plan: Lipid panel ordered. (2) Osteoporosis: Code(s): M81.0 - Age-related osteoporosis without current pathological fracture Category: Medical Plan: Continue vitamin-D supplementation and recommend weight-bearing exercise. Next DEXA scan due 11/2026 (3) Hypothyroidism: Code(s): E03.9 - Hypothyroidism, unspecified Category: Medical Plan: TSH ordered. Continue levothyroxine (4) HTN (hypertension): Code(s): I10 - Essential (primary) hypertension Category: Medical Plan: Controlled. Continue lisinopril (5) GERD (gastroesophageal reflux disease): Code(s): K21.9 - Gastro-esophageal reflux disease without esophagitis Category: Medical Plan: Controlled Plan Follow-up in the office as scheduled. Labs to be completed following visit today. Continue Claritin for seasonal allergies and add Flonase/nasal sprays. Can use decongestants but recommend HBP labeled medications Orders: Orders Liver Panel Today E03.9 - Hypothyroidism, unspecified, E78.5 - Hyperlipidemia, unspecified, I10 - Essential (primary) hypertension, K21.9 - Gastro-esophageal reflux disease without esophagitis, M81.0 - Age-related osteoporosis without current pathological fracture Vitamin D 25-OH Total Today E03.9 - Hypothyroidism, unspecified, E78.5 - Hyperlipidemia, unspecified, I10 - Essential (primary) hypertension, K21.9 - Gastro-esophageal reflux disease without esophagitis, M81.0 - Age-related osteoporosis without current pathological fracture Basic Metabolic Panel Today E03.9 - Hypothyroidism, unspecified, E78.5 - Hyperlipidemia, unspecified, I10 - Essential (primary) hypertension, K21.9 - Gastro-esophageal reflux disease without esophagitis, M81.0 - Age-related osteoporosis without current pathological fracture Lipid Panel Today E03.9 - Hypothyroidism, unspecified, E78.5 - Hyperlipidemia, unspecified, I10 - Essential (primary) hypertension, K21.9 - Gastro-esophageal reflux disease without esophagitis, M81.0 - Age-related osteoporosis without current pathological fracture TSH reflex Free T4 Today E03.9 - Hypothyroidism, unspecified, E78.5 - Hyperlipidemia, unspecified, I10 - Essential (primary) hypertension, K21.9 - Gastro-esophageal reflux disease without esophagitis, M81.0 - Age-related osteoporosis without current pathological fracture Complete Blood Count Auto Diff Today E03.9 - Hypothyroidism, unspecified, E78.5 - Hyperlipidemia, unspecified, I10 - Essential (primary) hypertension, K21.9 - Gastro-esophageal reflux disease without esophagitis, M81.0 - Age-related osteoporosis without current pathological fracture Medications: New fluticasone propionate 50 mcg/actuation (Allergy Relief (fluticasone)) administer into each nostril 1 spray intranasal BID 16 grams 4RF
--- OUTSIDE RECORDS SUMMARY | 2024-12-26 09:49 | XMS_ITS | Patient Health Record ---
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 Name Role Phone Ari Jean MD Primary Care Provider Santino Scott Jr Unavailable Allergies Allergen (clinical drug ingredient) Drug/Non Drug Allergy documented on EMR Reaction Allergy Type Onset Date Status Diclofenac Unknown Drug Allergy Active Reason For Referral No Information Medications Medication [...] Problem Status W/U Status Risk Notes Problem [id number] Colon cancer screening (Z12.11) Active confirmed Problem [id number] FPC (current) use of aspirin (Z79.82) Active confirmed Plan Of Treatment Future Test Test Name Order Date COLONOSCOPY 12/22/2020 Insurance Providers Payer Name Payer Address Payer Phone Subscriber Number Group Number Insured Name Patient Relationship to Insured Coverage Start Date Coverage End Date MEDICARE OF [employer] [address] [place] [id number] [employer] TRAN Self - patient is the insured Medical (General) History Medical History History ICD Code hypertension hashimotos thyroiditis sjogren syndrome osteopenia pituitary tumor hearing impaired Surgical History Surgery Date(Month/Year) hernia repair 1959 hysterectomy 1969 adenoidectomy 2002
== END 2024-12-26 10:29 | disposition home or self-care (01) ==
LOC: HO.HMCHD 09:23
PROVIDERS: PCP Internal Medicine; Visit Provider Physician Assistant
DX: E78.5 Hyperlipidemia, unspecified (principal); M81.0 Age-related osteoporosis without current pathological fracture; E03.9 Hypothyroidism, unspecified; I10 Essential (primary) hypertension; K21.9 Gastro-esophageal reflux disease without esophagitis

== ENCOUNTER → 2024-12-26 09:23 | Outpatient (BNVA) | payer MEDICARE, SELFPAY | PROVIDERS: PCP Internal Medicine; Visit Provider Physician Assistant | DX: Z13.89 Encounter for screening for other disorder (principal) ==

== ENCOUNTER 2024-12-26 10:12 | Outpatient (REF) | payer MEDICARE, SELFPAY ==
[2024-12-26 13:08] LABS: MANUAL DIFF FLAG NO
[2024-12-26 13:15] LABS: Basophils Percent Auto 0.8 % (0-2); Eosinophils Absolute Auto 0.1 X10*3/uL (0.0-0.4); Hematocrit 41.8 % (37.0-47.0); Hemoglobin 14.3 g/dl (12.0-16.0); Imm Gran Abs Auto 0.01 X10*3/uL (0.00-0.03); Imm Gran Pct Auto 0.2 % (0.0-0.4); Lymphocytes Absolute Auto 1.2 X10*3/uL (1.2-4.9); Lymphocytes Percent Auto 21.9 % (20-40); Mean Corpuscular HGB Conc 34.2 g/dl (31.0-35.0); Mean Corpuscular Volume 87.6 fL (80.0-98.0); Mean Platelet Volume 8.1 fL (9.4-12.3); Monocytes Absolute Auto 0.4 X10*3/uL (0.1-1.2); Monocytes Percent Auto 6.8 % (2-11); Neutrophils Absolute Auto 3.7 x10*3/uL (2.0-8.3); Neutrophils Percent Auto 69.3 % (45-73); Platelet Count 228 X10*3/uL (160-400); Red Blood Count 4.77 X10*6/uL (4.20-5.50); Red Cell Distribution Width 12.4 % (11.0-16.0); White Blood Count 5.3 X10*3/uL (4.8-10.8)
[2024-12-26 14:00] LABS: Alanine Aminotransferase 21 U/L (0-31); Alkaline Phosphatase 61 U/L (39-117); Anion Gap 12 (12-20); Aspartate Amino Transferase 23 U/L (5-31); Bilirubin Direct 0.3 mg/dL (0.0-0.5); Bilirubin Total 0.9 mg/dL (0.0-1.0); Blood Urea Nitrogen 14 mg/dL (9-16); Calcium 10.2 mg/dL (8.4-10.2); Carbon Dioxide 28 mmol/L (22-29); Chloride 103 mmol/L (96-108); Cholesterol 268 mg/dL (<200); Estimated Glomerular Filt Rate > 60; Glucose Random 91 mg/dL (60-115); HDL Cholesterol 74 mg/dL (>40); LDL Cholesterol Calculated 172 mg/dL (<100); Potassium 3.6 mmol/L (3.3-5.1); Sodium 139 mmol/L (135-145); TSH reflex Free T4 1.02 uIU/mL (0.32-4.0); Total Protein 7.4 g/dL (6.5-8.0); Triglycerides 112 mg/dL (<150); Vitamin D 25-OH Total 58.6 ng/mL (>30)
== END 2024-12-26 10:13 | disposition home or self-care (01) ==
LOC: HO.10HDL 10:12
PROVIDERS: Visit Provider Physician Assistant
DX: E78.5 Hyperlipidemia, unspecified (principal); M81.0 Age-related osteoporosis without current pathological fracture; E03.9 Hypothyroidism, unspecified; I10 Essential (primary) hypertension; K21.9 Gastro-esophageal reflux disease without esophagitis; Z79.899 Other long term (current) drug therapy
CPT/HCPCS: 36415; 80048; 80061; 80076; 82306; 84443; 85025; 96127; 99202

== ENCOUNTER 2025-06-17 08:37 | Outpatient (REF) | payer MEDICARE, SELFPAY ==
--- NOTE | ~2025-06-17 | MM_ITS ---
EXAMINATION: MM SCREENING DIGITAL BREAST TOMOSYNTHESIS, BILATERAL CLINICAL INFORMATION: Screening. Asymptomatic. COMPARISON: Mammography: Comparison is made with available priors TECHNIQUE: Digital breast mammography with tomosynthesis is performed in both the craniocaudal and mediolateral oblique views along with computer-aided detection (CAD). FINDINGS: There are scattered areas of fibroglandular density. Left: Focal asymmetry central outer breast posterior depth. No suspicious calcifications or other abnormal findings. Right: There are no significant masses, abnormal calcifications, or other abnormalities. MM/MM tomosynthesis screening BI IMPRESSION: Additional imaging is recommended ASSESSMENT: BI-RADS Category 0: Incomplete - Need additional Imaging Evaluation RECOMMENDATION: 1. Additional views of the left breast. 2. Targeted ultrasound if warranted after review of the additional views. 3. Radiology department staff will contact the patient for additional imaging. Additional Imaging required Electronically signed by: Paola Jacome DO 06/19/2025 04:01 PM SONIA
--- OUTSIDE RECORDS SUMMARY | 2025-06-17 08:52 | XMS_ITS | Clinical Summary ---
Author Organization [facility] Address [address] [place] [id number] Phone Care Team Providers Care Ambulatory Services Representative Name Role Phone Ari Jean MD Primary Care Provider Allergies No known active allergies Medications levothyroxine (SYNTHROID, LEVOTHROID) 50 MCG tablet Take 50 mcg by mouth every morning. Active lisinopril (PRINIVIL,ZESTRI L) 10 MG tablet Take 10 mg by mouth daily. Active cholecalciferol (VITAMIN D3) 25 MCG (1,000 unit) tablet Take 2,000 Units by mouth daily. Active cycloSPORINE (RESTASIS) 0.05 % suspension Place 1 drop into each eye 2 (two) times a day. Active predniSONE (DELTASONE) 10 MG tabletIndication s:Sjogren's syndrome, with unspecified organ involvement Take 1 tablet (10 mg total) by mouth daily with breakfast. 30 tablet 1 3 Active Additional Information Patient not taking.Reported on 04/09/2024 hydroxychloroqui ne (PLAQUENIL) 200 mg tabletIndication s:Sjogren's syndrome, with unspecified organ involvement Take 1 tablet (200 mg total) by mouth daily. 90 tablet 3 5 Active atorvastatin (LIPITOR) 40 MG tablet Take 40 mg by mouth daily. 5 Active fluticasone propionate (FLONASE) 50 mcg/actuation nasal spray 1 spray by Nasal route as needed for rhinitis. Active Active Problems Problem Noted Date Diagnosed Date Quadriceps weakness 04/10/2025 Assessment & Plan (04/26/2025 9:47 PM EDT): Use warm packs versus warm shower followed by gentle, regular ROM, stretching and muscle strengthening exercises-examples of exercises with pictures and detailed instructions printed for home use today. If symptoms progress despite above strategies may need to consider formal PT. Chronic fatigue 10/08/2024 Assessment & Plan (10/08/2024 1:29 PM EDT): To make sure that thyroid dysfunction does not contribute to her increased fatigue I asked her to get it checked. Osteopenia 04/09/2024 Assessment & Plan (04/26/2025 9:46 PM EDT): Continue daily walking, proper calcium vitamin D supplementation, fall and fracture prevention strategies. Double the dose of vit D to 2000 units daily till 10/13/2025. Assessment & Plan (10/08/2024 1:03 PM EDT): I requested copy of most recent bone density from [facility]. Continue daily walking, proper calcium vitamin D supplementation, fall and fracture prevention strategies. Double the dose of vit D to 2000 units daily till 09/12/2024. Assessment & Plan (04/09/2024 1:41 PM EDT): I requested copy of most recent bone density from [facility]. Continue daily walking, proper calcium vitamin D supplementation, fall and fracture prevention strategies. Double the dose of vit D to 2000 units daily till 09/12/2024. Acute left-sided low back pain without sciatica 10/03/2023 Postmenopausal 09/20/2022 Assessment & Plan (10/03/2022 1:56 PM EDT): Continue proper calcium and vitamin D supplementation-preferably via diet. Avoid falls and injuries. Continue daily weightbearing exercises. Get an interval health BMD at [facility] since last was in mid April 2020. Primary hypertension 09/20/2022 Assessment & Plan (10/03/2022 1:54 PM EDT): To make sure that she does not have to take antihypertensive medication I have asked her to check blood pressure readings at home about the same time of the day, after 30-minute rest, on the same arm, by the same equipment. If the readings are consistently higher than 120/80 make an appointment with PCP for review and management. Hypercalcemia 09/01/2020 Assessment & Plan (09/01/2020 9:27 AM EST): She has stopped calcium supplementation and I am asking her to get another checkup including ionized calcium to make sure that she does not require additional work-up. Chronic midline low back pain without sciatica 1 08/02/2019 Assessment & Plan (04/10/2025 10:16 AM EDT): Avoid bending, stooping, heavy lifting, sudden turns. Use warm packs versus warm shower prior to gentle, regular stretching, ROM and muscle strengthening exercises-examples of exercises with pictures and detailed instructions printed for home use today. Joint protection, energy conservation. She may benefit from topical cream such as Arnica, Biofreeze, Aspercreme versus medicated patches such as salonpas, icy hot patch 2-3 times daily and if necessary at bedtime x 3 weeks. Additional benefit by chiropractic therapy, gentle massage versus acupuncture versus gentle traction or local steroid injections if above measures unsuccessful. Due to reported episodes of urinary incontinence I requested an x-ray of her lumbar spine to make sure that there are no signs of severe stenosis versus nerve impingement that may require more aggressive approach. Assessment & Plan (10/08/2024 1:03 PM EDT): Avoid bending, stooping, heavy lifting, sudden turns. Use warm packs versus warm shower prior to gentle, regular stretching, ROM and muscle strengthening exercises-examples of exercises with pictures and detailed instructions printed for home use today. Joint protection, energy conservation. She may benefit from topical cream such as Arnica, Biofreeze, Aspercreme versus medicated patches such as salonpas, icy hot patch 2-3 times daily and if necessary at bedtime x 3 weeks. Additional benefit by chiropractic therapy, gentle massage versus acupuncture versus gentle traction or local steroid injections if above measures unsuccessful. Due to reported episodes of urinary incontinence I requested an x-ray of her lumbar spine to make sure that there are no signs of severe stenosis versus nerve impingement that may require more aggressive approach. Assessment & Plan (04/09/2024 1:00 PM EDT): Avoid bending, stooping, heavy lifting, sudden turns. Use warm packs versus warm shower prior to gentle, regular stretching, ROM and muscle strengthening exercises-examples of exercises with pictures and detailed instructions printed for home use today. Joint protection, energy conservation. She may benefit from topical cream such as Arnica, Biofreeze, Aspercreme versus medicated patches such as salonpas, icy hot patch 2-3 times daily and if necessary at bedtime x 3 weeks. Additional benefit by chiropractic therapy, gentle massage versus acupuncture versus gentle traction or local steroid injections if above measures unsuccessful. Due to reported episodes of urinary incontinence I requested an x-ray of her lumbar spine to make sure that there are no signs of severe stenosis versus nerve impingement that may require more aggressive approach. Assessment & Plan (10/03/2023 2:27 PM EDT): Avoid bending, stooping, heavy lifting, sudden turns. Use warm packs versus warm shower prior to gentle, regular stretching, ROM and muscle strengthening exercises-examples of exercises with pictures and detailed instructions printed for home use today. Joint protection, energy conservation. She may benefit from topical cream such as Arnica, Biofreeze, Aspercreme versus medicated patches such as salonpas, icy hot patch 2-3 times daily and if necessary at bedtime x 3 weeks. Additional benefit by chiropractic therapy, gentle massage versus acupuncture versus gentle traction or local steroid injections if above measures unsuccessful. Due to reported episodes of urinary incontinence I requested an x-ray of her lumbar spine to make sure that there are no signs of severe stenosis versus nerve impingement that may require more aggressive approach. Assessment & Plan (09/20/2022 11:41 AM EST): Avoid bending, stooping, heavy lifting, sudden turns. Use warm packs versus warm shower prior to gentle, regular stretching, ROM and muscle strengthening exercises. Joint protection, energy conservation. She may benefit from topical cream such as Arnica, Biofreeze, Aspercreme versus medicated patches such as salonpas, icy hot patch 2-3 times daily and if necessary at bedtime x 3 weeks. Additional benefit by chiropractic therapy, gentle massage versus acupuncture versus gentle traction or local steroid injections if above measures unsuccessful. Assessment & Plan (12/05/2021 11:00 AM EDT): Avoid bending, stooping, heavy lifting, sudden turns. Use warm packs versus warm shower prior to gentle, regular stretching, ROM and muscle strengthening exercises. Joint protection, energy conservation. She may benefit from topical cream such as Arnica, Biofreeze, Aspercreme versus medicated patches such as salonpas, icy hot patch 2-3 times daily and if necessary at bedtime x 3 weeks. Additional benefit by chiropractic therapy, gentle massage versus acupuncture versus gentle traction or local steroid injections if above measures unsuccessful. Assessment & Plan (09/05/2021 8:56 AM EST): Avoid bending, stooping, heavy lifting, sudden turns. Use warm packs versus warm shower prior to gentle, regular stretching, ROM and muscle strengthening exercises. Joint protection, energy conservation. She may benefit from topical cream such as Arnica, Biofreeze, Aspercreme versus medicated patches such as salonpas, icy hot patch 2-3 times daily and if necessary at bedtime x 3 weeks. Additional benefit by chiropractic therapy, gentle massage versus acupuncture versus gentle traction or local steroid injections if above measures unsuccessful. Assessment & Plan (06/08/2021 8:37 AM EST): Avoid bending, stooping, heavy lifting, sudden turns. Use warm packs versus warm shower prior to gentle, regular stretching, ROM and muscle strengthening exercises. Joint protection, energy conservation. She may benefit from topical cream such as Arnica, Biofreeze, Aspercreme versus medicated patches such as salonpas, icy hot patch 2-3 times daily and if necessary at bedtime x 3 weeks. Additional benefit by chiropractic therapy, gentle massage versus acupuncture versus gentle traction or local steroid injections if above measures unsuccessful. Assessment & Plan (03/02/2021 9:51 AM EDT): Avoid bending, stooping, heavy lifting, sudden turns. Use warm packs versus warm shower prior to gentle, regular stretching, ROM and muscle strengthening exercises. Joint protection, energy conservation. She may benefit from topical cream such as Arnica, Biofreeze, Aspercreme versus medicated patches such as salonpas, icy hot patch 2-3 times daily and if necessary at bedtime x 3 weeks. Additional benefit by chiropractic therapy, gentle massage versus acupuncture versus gentle traction or local steroid injections if above measures unsuccessful. Assessment & Plan (12/01/2020 10:19 AM EDT): Avoid bending, stooping, heavy lifting, sudden turns. Use warm packs versus warm shower prior to gentle, regular stretching, ROM and muscle strengthening exercises. Joint protection, energy conservation. She may benefit from topical cream such as Arnica, Biofreeze, Aspercreme versus medicated patches such as salonpas, icy hot patch 2-3 times daily and if necessary at bedtime x 3 weeks. Additional benefit by chiropractic therapy, gentle massage versus acupuncture versus gentle traction or local steroid injections if above measures unsuccessful. Assessment & Plan (09/01/2020 8:56 AM EST): Avoid bending, stooping, heavy lifting, sudden turns. Use warm packs versus warm shower prior to gentle, regular stretching, ROM and muscle strengthening exercises. Joint protection, energy conservation. She may benefit from topical cream such as Arnica, Biofreeze, Aspercreme versus medicated patches such as salonpas, icy hot patch 2-3 times daily and if necessary at bedtime x 3 weeks. Additional benefit by chiropractic therapy, gentle massage versus acupuncture versus gentle traction or local steroid injections if above measures unsuccessful. Assessment & Plan (06/05/2020 10:11 PM EST): Avoid bending, stooping, heavy lifting, sudden turns. Use warm packs versus warm shower prior to gentle, regular stretching, ROM and muscle strengthening exercises. Joint protection, energy conservation. She may benefit from topical cream such as Arnica, Biofreeze, Aspercreme versus medicated patches such as salonpas, icy hot patch 2-3 times daily and if necessary at bedtime x 3 weeks. Additional benefit by chiropractic therapy, gentle massage versus acupuncture versus gentle traction or local steroid injections if above measures unsuccessful. Long-term use of Plaquenil 06/02/2020 Assessment & Plan (04/10/2025 10:15 AM EDT): Take exactly as prescribed. Keep well-hydrated. Make sure to follow-up with awning spreader at least every 12 months. Assessment & Plan (10/08/2024 1:03 PM EDT): Take exactly as prescribed. Keep well-hydrated. Make sure to follow-up with awning spreader at least every 12 months. Assessment & Plan (04/09/2024 1:00 PM EDT): Take exactly as prescribed. Keep well-hydrated. Make sure to follow-up with awning spreader at least every 12 months. Assessment & Plan (10/03/2023 2:12 PM EDT): Take exactly as prescribed. Keep well-hydrated. Make sure to follow-up with awning spreader at least every 12 months. Assessment & Plan (03/28/2023 10:54 AM EDT): Take exactly as prescribed. Keep well-hydrated. Make sure to follow-up with awning spreader at least every 12 months. Assessment & Plan (10/03/2022 1:55 PM EDT): Take exactly as prescribed. Keep well-hydrated. Make sure to follow-up with awning spreader at least every 12 months. Assessment & Plan (12/05/2021 11:01 AM EDT): Exactly as prescribed. Keep well-hydrated. Make sure to follow-up with awning spreader at least every 12 months. Assessment & Plan (09/05/2021 8:57 AM EST): Exactly as prescribed. Keep well-hydrated. Make sure to follow-up with awning spreader at least every 12 months. Assessment & Plan (06/08/2021 8:36 AM EST): Exactly as prescribed. Keep well-hydrated. Make sure to follow-up with awning spreader at least every 12 months. Assessment & Plan (03/02/2021 9:50 AM EDT): Exactly as prescribed. Keep well-hydrated. Make sure to follow-up with awning spreader at least every 12 months. Assessment & Plan (12/01/2020 10:19 AM EDT): Exactly as prescribed. Keep well-hydrated. Make sure to follow-up with awning spreader at least every 12 months. Assessment & Plan (09/01/2020 9:27 AM EST): Exactly as prescribed. Keep well-hydrated. Make sure to follow-up with awning spreader at least every 12 months. Assessment & Plan (06/05/2020 10:12 PM EST): Exactly as prescribed. Keep well-hydrated. Make sure to follow-up with awning [facility]er at least every 12 months. group home current use of systemic steroids 03/10 Assessment & Plan (04/10/2025 10:16 AM EDT): She is taking prednisone very infrequently and always with food. Daily calcium and vitamin D supplementation. Regular weightbearing exercises. Fall prevention strategies. Monitor for multiple side effects including but not limited to mood swings, increased intraocular and systemic pressure, diabetes, osteoporosis, fluid retention, increased appetite, risk of infection, bruising, hair thinning etc. Assessment & Plan (10/08/2024 1:03 PM EDT): She is taking prednisone very infrequently and always with food. Daily calcium and vitamin D supplementation. Regular weightbearing exercises. Fall prevention strategies. Monitor for multiple side effects including but not limited to mood swings, increased intraocular and systemic pressure, diabetes, osteoporosis, fluid retention, increased appetite, risk of infection, bruising, hair thinning etc. Assessment & Plan (04/09/2024 1:00 PM EDT): She is taking prednisone very infrequently and always with food. Daily calcium and vitamin D supplementation. Regular weightbearing exercises. Fall prevention strategies. Monitor for multiple side effects including but not limited to mood swings, increased intraocular and systemic pressure, diabetes, osteoporosis, fluid retention, increased appetite, risk of infection, bruising, hair thinning etc. Assessment & Plan (10/03/2023 2:26 PM EDT): She is taking prednisone very infrequently and always with food. Daily calcium and vitamin D supplementation. Regular weightbearing exercises. Fall prevention strategies. Monitor for multiple side effects including but not limited to mood swings, increased intraocular and systemic pressure, diabetes, osteoporosis, fluid retention, increased appetite, risk of infection, bruising, hair thinning etc. Assessment & Plan (03/28/2023 10:54 AM EDT): Gently taper as tolerated. Daily calcium and vitamin D supplementation. Regular weightbearing exercises. Fall prevention strategies. Monitor for multiple side effects including but not limited to mood swings, increased intraocular and systemic pressure, diabetes, osteoporosis, fluid retention, increased appetite, risk of infection, bruising, hair thinning etc. Assessment & Plan (09/20/2022 11:41 AM EST): Gently taper as tolerated. Daily calcium and vitamin D supplementation. Regular weightbearing exercises. Fall prevention strategies. Monitor for multiple side effects including but not limited to mood swings, increased intraocular and systemic pressure, diabetes, osteoporosis, fluid retention, increased appetite, risk of infection, bruising, hair thinning etc. Assessment & Plan (03/02/2021 9:50 AM EDT): She is taking it very infrequently and usually 5 mg once or twice daily. Daily calcium and vitamin D supplementation. Regular weightbearing exercises. Fall prevention strategies. Monitor for multiple side effects including but not limited to risk of hips, knees, jaw osteonecrosis, mood swings, increased intraocular and systemic pressure, diabetes, osteoporosis, fluid retention, increased appetite, risk of infection, bruising, hair thinning etc. Assessment & Plan (12/05/2020 3:05 PM EDT): She is taking it very infrequently and usually 5 mg once or twice daily. Daily calcium and vitamin D supplementation. Regular weightbearing exercises. Fall prevention strategies. Monitor for multiple side effects including but not limited to risk of hips, knees, jaw osteonecrosis, mood swings, increased intraocular and systemic pressure, diabetes, osteoporosis, fluid retention, increased appetite, risk of infection, bruising, hair thinning etc. Assessment & Plan (06/02/2020 8:56 AM EST): Gently taper as tolerated. Daily calcium and vitamin D supplementation. Regular weightbearing exercises. Fall prevention strategies. Monitor for multiple side effects including but not limited to mood swings, increased intraocular and systemic pressure, diabetes, osteoporosis, fluid retention, increased appetite, risk of infection, bruising, hair thinning etc. Assessment & Plan (03/13/2020 6:29 PM EDT): Daily calcium and vitamin D supplementation. Regular weightbearing exercises. Fall prevention strategies. Monitor for multiple side effects including but not limited to mood swings, increased intraocular and systemic pressure, diabetes, osteoporosis, fluid retention, increased appetite, risk of infection, bruising, hair thinning etc. Sjogren's syndrome 07/14/2019 Assessment & Plan (04/10/2025 10:15 AM EDT): Clinically appears stable with intermittent low-grade worsening-tolerable. Continue Plaquenil 200 mg daily. Keep well-hydrated. Avoid spicy and acidic foods. Diligent mouth hygiene. Use humidifier in the bedroom. Continue eyedrops and liquid gels as prescribed and needed. Regular ocular and dental checkups. Get monitoring labs today and prior to next visit in 6 months provided no abnormalities and stable clinical status-standing orders in [facility]. . Assessment & Plan (10/08/2024 1:29 PM EDT): Clinically appears stable with intermittent low-grade worsening-tolerable. Continue Plaquenil 200 mg daily. Keep well-hydrated. Avoid spicy and acidic foods. Diligent mouth hygiene. Use humidifier in the bedroom. Continue eyedrops and liquid gels as prescribed and needed. Regular ocular and dental checkups. Get monitoring labs today and prior to next visit in 6 months provided no abnormalities and stable clinical status-standing orders in [facility]. . Assessment & Plan (04/09/2024 1:00 PM EDT): Clinically appears stable with intermittent low-grade worsening-tolerable. Continue Plaquenil 200 mg daily. Keep well-hydrated. Avoid spicy and acidic foods. Diligent mouth hygiene. Use humidifier in the bedroom. Continue eyedrops and liquid gels as prescribed and needed. Regular ocular and dental checkups. Get monitoring labs prior to next visit in 6 months provided no abnormalities and stable clinical status-standing orders in [facility]. . Assessment & Plan (10/03/2023 2:24 PM EDT): Clinically appears stable with intermittent low-grade worsening-tolerable. Continue Plaquenil 200 mg daily. Keep well-hydrated. Avoid spicy and acidic foods. Diligent mouth hygiene. Use humidifier in the bedroom. Continue eyedrops and liquid gels as prescribed and needed. Regular ocular and dental checkups. Get monitoring labs prior to next visit in 6 months provided no abnormalities and stable clinical status-standing orders in [facility]. . Assessment & Plan (04/02/2023 11:02 AM EDT): Continue Plaquenil 200 mg daily. Keep well-hydrated. Avoid spicy and acidic foods. Diligent mouth hygiene. Use humidifier in the bedroom. Continue eyedrops and liquid gels as prescribed and needed. Regular ocular and dental checkups. Get yearly influenza and COVID-19 updated booster vaccine doses preferably by mid-late April 2023. Get monitoring labs prior to next visit in 6 months provided no abnormalities and stable clinical status-standing orders in [facility]. . Assessment & Plan (10/03/2022 1:55 PM EDT): Continue Plaquenil 200 mg daily. Keep well-hydrated. Avoid spicy and acidic foods. Diligent mouth hygiene. Use humidifier in the bedroom. Continue eyedrops and liquid gels as prescribed and needed. Regular ocular and dental checkups. Get monitoring labs today and prior to next visit in 6 months provided no abnormalities and stable clinical status-standing orders in [facility]. . Assessment & Plan (12/05/2021 10:53 AM EDT): Continue Plaquenil 200 mg daily. Keep well-hydrated. Avoid spicy and acidic foods. Diligent mouth hygiene. Use humidifier in the bedroom. Continue eyedrops and liquid gels as prescribed and needed. Regular ocular and dental checkups. Get monitoring labs prior to next visit in 3 months-standing orders in [facility]. . Assessment & Plan (09/05/2021 9:22 AM EST): Continue Plaquenil 200 mg daily. Keep well-hydrated. Avoid spicy and acidic foods. Diligent mouth hygiene. Use humidifier in the bedroom. Continue eyedrops and liquid gels as prescribed and needed. Regular ocular and dental checkups. Get monitoring labs prior to next visit in 3 months-standing orders in [facility]. . Assessment & Plan (06/08/2021 8:33 AM EST): Get the labs monitoring today on her way out of the office-orders in [facility]. Keep well-hydrated. Avoid spicy and acidic foods. Diligent mouth hygiene. Use humidifier in the bedroom. Continue eyedrops and liquid gels as prescribed and needed. Regular ocular and dental checkups. . Assessment & Plan (03/02/2021 9:49 AM EDT): Get the labs monitoring today on her way out of the office-orders in [facility]. Keep well-hydrated. Avoid spicy and acidic foods. Diligent mouth hygiene. Use humidifier in the bedroom. Continue eyedrops and liquid gels as prescribed and needed. Regular ocular and dental checkups. . Assessment & Plan (12/01/2020 10:15 AM EDT): Get the labs monitoring today on her way out of the office-orders in [facility]. Keep well-hydrated. Avoid spicy and acidic foods. Diligent mouth hygiene. Use humidifier in the bedroom. Continue eyedrops and liquid gels as prescribed and needed. Regular ocular and dental checkups. . Assessment & Plan (09/01/2020 9:26 AM EST): Carefully continue Plaquenil 200 mg daily. Get the labs monitoring today on her way out of the office-orders in [facility]. Keep well-hydrated. Avoid spicy and acidic foods. Diligent mouth hygiene. Use humidifier in the bedroom. Continue eyedrops and liquid gels as prescribed and needed. Regular ocular and dental checkups. . Assessment & Plan (06/02/2020 8:54 AM EST): Keep well-hydrated. Avoid spicy and acidic foods. Diligent mouth hygiene. Use humidifier in the bedroom. Continue eyedrops and liquid gels as prescribed and needed. Regular ocular and dental checkups. I provided her with pamphlet on disease modifying antirheumatic medication- Plaquenil that is known to reduce fatigue, arthralgias and frequency and severity of the disease flares. I briefly reviewed with her that it may take 3-4 months for full effect. She is quite hesitant to start it but promises to consider it. If well tolerated it may eliminate need for prednisone for flares. Assessment & Plan (03/13/2020 6:29 PM EDT): Keep well-hydrated. Avoid spicy and acidic foods. Diligent mouth hygiene. Use humidifier in the bedroom. Continue eyedrops and liquid gels as prescribed and needed. Regular ocular and dental checkups. I provided her with pamphlet on disease modifying antirheumatic medication- Plaquenil that is known to reduce fatigue, arthralgias and frequency and severity of the disease flares. I briefly reviewed with her that it may take 3-4 months for full effect. She is quite hesitant to start it but promises to consider it. If well tolerated it may eliminate need for prednisone for flares. Get yearly influenza vaccine by mid April 2020. Assessment & Plan (09/25/2019 3:00 PM EDT): Keep well-hydrated. Avoid spicy and acidic foods. Diligent mouth hygiene. Use humidifier in the bedroom. Continue eyedrops and liquid gels as prescribed and needed. Regular ocular and dental checkups. I provided her with pamphlet on disease modifying antirheumatic medication- Plaquenil that is known to reduce fatigue, arthralgias and frequency and severity of the disease flares. I briefly reviewed with her that it may take 3-4 months for full effect. She is quite hesitant to start it but promises to consider it. If well tolerated it may eliminate need for prednisone for flares. Assessment & Plan (07/15/2019 11:13 PM EST): Keep well-hydrated. Avoid spicy and acidic foods. Diligent mouth hygiene. Use humidifier in the bedroom. Continue eyedrops and liquid gels as prescribed and needed. Regular ocular and dental checkups. I provided her with pamphlet on disease modifying antirheumatic medication- Plaquenil that is known to reduce fatigue, arthralgias and frequency and severity of the disease flares. I briefly reviewed with her that it may take 3-4 months for full effect. 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 Close follow-up with prescribing physician as scheduled. Assessment & Plan (06/08/2021 8:35 AM EST): Continue thyroid hormone replacement therapy as prescribed. Close follow-up with prescribing physician as scheduled. Assessment & Plan (03/02/2021 9:50 AM EDT): Continue thyroid hormone replacement therapy as prescribed. Close follow-up with prescribing physician as scheduled. Assessment & Plan (12/01/2020 10:16 AM EDT): Continue thyroid hormone replacement therapy as prescribed. Close follow-up with prescribing physician as scheduled. Assessment & Plan (09/01/2020 8:54 AM EST): Continue thyroid hormone replacement therapy as prescribed. Close follow-up with prescribing physician as scheduled. Assessment & Plan (06/02/2020 8:54 AM EST): Continue thyroid hormone replacement therapy as prescribed. Close follow-up with prescribing physician as scheduled. Assessment & Plan (03/13/2020 6:26 PM EDT): Continue thyroid hormone replacement therapy as prescribed. Close follow-up with prescribing physician as scheduled. Assessment & Plan (09/25/2019 3:01 PM EDT): Continue thyroid hormone replacement therapy as prescribed. Assessment & Plan (07/15/2019 11:14 PM EST): Continue thyroid hormone replacement therapy as prescribed. Other dysphagia 07/14/2019 Assessment & Plan (10/08/2024 1:03 PM EDT): Proper hydration. Proper chewing and swallowing technique reviewed and strongly encouraged. If dysphagia episodes continue or worsen suggest formal swallowing study although patient declined offer at this time. Assessment & Plan (03/28/2023 10:54 AM EDT): Proper hydration. Proper chewing and swallowing technique reviewed and strongly encouraged. If dysphagia episodes continue or worsen suggest formal swallowing study although patient declined offer at this time. Assessment & Plan (09/20/2022 11:41 AM EST): Proper hydration. Proper chewing and swallowing technique reviewed and strongly encouraged. If dysphagia episodes continue or worsen suggest formal swallowing study although patient declined offer at this time. Assessment & Plan (12/05/2021 11:02 AM EDT): Proper hydration. Proper chewing and swallowing technique reviewed and strongly encouraged. If dysphagia episodes continue or worsen suggest formal swallowing study although patient declined offer at this time. Assessment & Plan (09/05/2021 8:58 AM EST): Proper hydration. Proper chewing and swallowing technique reviewed and strongly encouraged. If dysphagia episodes continue or worsen suggest formal swallowing study although patient declined offer at this time. Assessment & Plan (06/08/2021 8:36 AM EST): Proper hydration. Proper chewing and swallowing technique reviewed and strongly encouraged. If dysphagia episodes continue or worsen suggest formal swallowing study although patient declined offer at this time. Assessment & Plan (09/01/2020 8:56 AM EST): Proper hydration. Proper chewing and swallowing technique reviewed and strongly encouraged. If dysphagia episodes continue or worsen suggest formal swallowing study although patient declined offer at this time. Assessment & Plan (06/02/2020 8:55 AM EST): Proper hydration. Proper chewing and swallowing technique reviewed and strongly encouraged. If dysphagia episodes continue or worsen suggest formal swallowing study although patient declined offer at this time. Assessment & Plan (03/13/2020 6:27 PM EDT): Proper hydration. Proper chewing and swallowing technique reviewed and strongly encouraged. If dysphagia episodes continue or worsen suggest formal swallowing study although patient declined offer at this time. Assessment & Plan (09/25/2019 3:01 PM EDT): Proper hydration. Proper chewing and swallowing technique reviewed and strongly encouraged. If dysphagia episodes continue or worsen suggest formal swallowing study although patient declined offer at this time. Assessment & Plan (07/15/2019 11:13 PM EST): Proper hydration. Proper chewing and swallowing technique reviewed and strongly encouraged. If dysphagia episodes continue or worsen suggest formal swallowing study although patient declined offer today. Resolved Problems Problem Noted Date Diagnosed Date Resolved Date Postmenopausal 07/14/2019 09/01/2020 Assessment & Plan (03/13/2020 6:28 PM EDT): Proper calcium and vitamin D supplementation. Fall and fracture prevention. Daily weightbearing exercises. She believes that her last bone density was over 2 years ago and requests referral to [facility]'s parmelee when she is scheduled for mammography hoping to get that at the same time. Assessment & Plan (07/15/2019 11:14 PM EST): Proper calcium and vitamin D supplementation. Fall and fracture prevention. Daily weightbearing exercises. Encounters Date Type Department Care Team Description 04/10/2025 10:45 AM EDT - 04/10/2025 11:59 PM EDT Hospital Encounter [facility] [address] [place] [address] Daylin Ugarte MD Discharge Disposition: Home or Self Care 04/10/2025 10:00 AM EDT Office Visit [facility] [address] [place] [address] Daylin Ugarte MD Sjogren's syndrome, with unspecified organ involvement (Primary Dx); Long-term use of Plaquenil; Chronic midline low back pain without sciatica; Osteopenia of multiple sites; group home current use of systemic steroids; Quadriceps weakness 04/10/2025 Telephone [facility] [address] [place] [address] Daylin Ugarte MD Appointment from Last 3 Months Immunizations Immunization Administration Dates Next Due COVID-19 (Pre-05/07) Pfizer Vaccine, mRNA, PF 10/11/2020,09/20/2020 INFLUENZA, SPLIT VIRUS, TRIV ALENT W/ PRESERVATIVE IM 04/28/2020 Influenza High-Dose Trivalen t Preservative Free IM 03/26/2024 Influenza Quadrivalent MDCK Preservative Free IM 04/26/2022,03/25/2020,04/10/2018 Influenza Quadrivalent Preservative Free IM 04/15,05/04/2017 Pneumococcal conjugate PCV21 09/15/2024 RSV Vaccine (monovalent, adjuvanted) 03/26/2024 Zoster recombinant 07/21/2020,04/16/2020 Social History Tobacco Use Types Packs/Day Years Used Date Smoking Tobacco: Never Smokeless Tobacco: Never Tobacco Cessation:Counseling Given: Not Answered Education Answer Date Recorded Are you interested in more education? Not on sonal e 11/10/2022 Are you concerned about learning? Not on file 11/10/2022 No 11/10/2022 No 11/10/2022 Digital Access Answer Date Recorded No 12/09/2022 No 12/09/2022 Reliable internet access at home? Not on file 12/09/2022 Device with a working camera? Not on file Comments Unknown Sex and Gender Information Value Date Recorded Sex Assigned at Not on file Legal Sex Female 11:50 AM EST Gender Identity Not on file Sexual Orientation Not on file Last Filed Vital Signs Vital Sign Reading Time Taken Comments Blood Pressure 148/78 04/10/2025 9:52 AM EDT Pulse 62 04/10/2025 9:52 AM EDT Temperature 37.1 C (98.8 F) 09/01/2020 8:37 AM EST Respiratory Rate 16 09/05/2021 8:33 AM EST Oxygen Saturation 97% 04/10/2025 9:52 AM EDT Inhaled Oxygen Concentration - - Weight 70.5 kg (155 lb 6.4 oz) 04/10/2025 9:52 A M EDT Height 172.7 cm (5' 8 ) 04/10/2025 9:52 AM EDT Body Mass Index 23.63 04/10/2025 9:52 AM EDT Plan of Treatment Upcoming Encounters Date Type Department Care Team (Late st Contact Info) Description 10/09/2025 9:00 AM EDT Office Visit [facility] [address] [place] [address] Daylin Ugarte MD [address] [place] [address], [address] [place] [address] [email or web address] Health Maintenance Due Date Last Done Comments Adult Td,Tdap Booster 1958 LIPID PANEL 1958 DEPRESSION SCREENING 1970 HEPATITIS C SCREENING 1976 COLOGUARD 2003 COLONOSCOPY 2003 COLORECTAL CANCER SCREENING 2003 FIT TEST 2003 FOBT 2003 SIGMOIDOSCOPY 2003 VIRTUAL COLONOSCOPY 2003 INFLUENZA VACCINE (#1) 2025 , 06/03/2023, 04/26/2022, Additional history exists COVID-19 VACCINE ( season) 2025 12/17/2024, 03/26/2024, 06/04/2023, Additional history exists MAMMOGRAM 05/29/2025 05/29/2023 BLOOD PRESSURE 10/08/2025 04/10/2025 TSH LEVEL 10/08/2025 10/08/2024 CREATININE LEVEL 04/10/2026 04/10/2025, , 04/09/2024, Additional history exists POTASSIUM LEVEL 04/10/2026 04/10/2025, 09/14, 04/09/2024, Additional history exists ZOSTER VACCINES Completed 07/21/2020, 04/16/2020 RSV VACCINE Completed 03/26/2024 PNEUMOCOCCAL VACCINES (50+ years) Completed 09/15/2024 OSTEOPOROSIS SCREENING INITIAL (ONE-TIME) Completed 11/20/2024, 09/25/2022 SMOKING STATUS SCREENING (Once After 26 Yrs) Completed 04/10/2025 HEPATITIS A VACCINES Aged Out No long er eligible based on patient's age to complete this topic HIB VACCINES Aged Out No longer eligi ble based on patient's age to complete this topic MENINGOCOCCAL VACCINES (ACWY) Aged Out No longer eligible based on patient's age to complete this topic MENINGOCOCCAL VACCINES (B) Aged Out N o longer eligible based on patient's age to complete this topic Medical Devices Not on file Procedures Procedure Name Priority Date/Time Associated Diagnosis Comments COMPREHENSIVE METABOLIC PANEL (CMP) Routine 04/10/2025 10:56 AM EDT Sjogren's syndrome, with unspecified organ involvement Long-term use of Plaquenil C-REACTIVE PROTEIN (CRP) Routine 04/10/2025 10:56 AM EDT Sjogren's syndrome, with unspecified organ involvement Long-term use of Plaquenil SEDIMENTATION RATE (ESR) Routine 04/10/2025 10:56 AM EDT Sjogren's syndrome, with unspecified organ involvement Long-term use of Plaquenil CBC AND DIFFERENTIAL Routine 04/10/2025 10:56 AM EDT Sjogren's syndrome, with unspecified organ involvement Long-term use of Plaquenil COMPLEMENT C3 Routine 04/10/2025 10:56 AM EDT Sjogren's syndrome, with unspecified organ involvement Long-term use of Plaquenil COMPLEMENT C4 Routine 04/10/2025 10:56 AM EDT Sjogren's syndrome, with unspecified organ involvement Long-term use of Plaquenil CREATINE KINASE (CK) Routine 04/10/2025 10:56 AM EDT Sjogren's syndrome, with unspecified organ involvement Long-term use of Plaquenil TOTAL PROTEIN CREATININE RATIO, RANDOM URINE Routine 04/10/2025 10:56 AM EDT Sjogren's syndrome, with unspecified organ involvement Long-term use of Plaquenil MONOCLONAL PROTEIN STUDY, SERUM Routine 04/10/2025 10:56 AM EDT Sjogren's syndrome, with unspecified organ involvement BD DXA SCREENING Routine 11/20/2024 11:4 3 AM EDT Osteopenia of multiple sites TSH WITH REFLEX Routine 10/08/2024 1:27 PM EDT Sjogren's syndrome, with unspecified organ involvement HM MAMMOGRAPHY Routine 05/29/2023 11:11 AM EST from Last 3 Months or Most Recently Relevant to Health Maintenance Results * TOTAL PROTEIN CREATININE RATIO, RANDOM URINE (04/10/2025 10:56 AM EDT) URINE TOTAL PROTEIN 7.0 mg/dL [facility] URINE CREATININE 134 mg/dL [facility] URINE TP CRE RATIO 0.05 0 - 0.19 [facility] Urine (Urine) 04/10/2025 10: 56 AM EDT 04/10/2025 11:01 AM EDT us Daylin Ugarte MD LAB URINE ORDERABLES Fin al Result [facility] [address] [place] [address] * (ABNORMAL) Monoclonal protein study, serum (04/10/2025 10:56 AM EDT) M-protein GK 0.017(H) g/dL [facility] PT LAB MED/[facility] [address] M-protein GL Test component not applicable or not reported. g/dL [facility] DR M-protein AK Test component not applicable or not reported. g/dL [facility] [address] M-protein AL Test component not applicable or not reported. g/dL [facility] DR M-protein MK Test component not applicable or not reported. g/dL [facility] DR M-protein ML Test component not applicable or not reported. g/dL [facility] DR Glycosylation Test component not applicable or not reported. [facility] Flag, M-protein Isotype Positive(A) Negative [facility] QMPTS Interpretation IgG kappa 0.017 g/dL [facility] Comment: (NOTE) ADDITIONAL INFORMATION The submitted sample was assayed by five separate immunopurifications for IgG, IgA, IgM, kappa and lambda. The result reflects the findings of either no monoclonal protein detected or those monoclonal immunoglobulins that were detected. This test was developed and its performance characteristics determined by [facility] in a manner consistent with CLIA requirements. This test has not been cleared or approved by the U.S. Food and Drug Administration. IgA 88 61 - 356 mg/dL [facility] IgM 161 37 - 286 mg/dL [facility] IgG 770 767 - 1,590 mg/dL [facility] Therapeutic Antibody Administered? No [facility] Comment:Corrected on 04/13 A T 1332: previously reported as NO Blood 04/10/2025 10:5 6 AM EDT 04/10/2025 11:01 AM EDT us Daylin Ugarte MD LAB BLOOD BKR ORDERABLES Edited Result - Final [facility] [address] [place] [address] * (ABNORMAL) Comprehensive metabolic panel (04/10/2025 10:56 AM EDT) SODIUM 137 133 - 146 mmol/L [facility] POTASSIUM 3.9 3.3 - 5.1 mmol/L [facility] CHLORIDE 100 96 - 108 mmol/L [facility] CO2 25 21 - 35 mmol/L [facility] BUN 15 6 - 19 mg/dL [facility] CREATININE 0.80 0.5 - 1.5 mg/dL [facility] GLUCOSE 93 70 - 99 mg/dL [facility] ALBUMIN 4.9(H) 3.9 - 4.8 g/dL [facility] TOTAL PROTEIN 7.4 6.5 - 8.0 g/dL [facility] CALCIUM 9.8 8.4 - 10.3 mg/dL [facility] ALKALINE PHOSPHATASE 76 39 - 117 U/L [facility] TOTAL BILIRUBIN 0.7 0.0 - 1.2 mg/dL [facility] AST 24 0 - 37 U/L [facility] ALT 23 0 - 40 U/L [facility] GLOBULIN 2.5 1 - 4.8 g/dL [facility] EGFR 81 >59 mL/min/1.7 3m2 [facility] Comment:Estimated glomerular filtration rate calculated using the CKD-EPI refit equation. ANION GAP 16 10 - 20 mmol/L [facility] Blood 04/10/2025 10:5 6 AM EDT 04/10/2025 11:01 AM EDT us Daylin Ugarte MD LAB BLOOD BKR ORDERABLES Final Result [address] [address] * Sedimentation rate (ESR) (04/10/2025 10:56 AM EDT) ESR 1 0 - 30 mm/h [facility] Blood 04/10/2025 10:5 6 AM EDT 04/10/2025 11:01 AM EDT us Daylin Ugarte MD LAB BLOOD BKR ORDERABLES Final Result [facility] [address] [place] [address] * CBC and differential (04/10/2025 10:56 AM EDT) WBC 4.65 4.00 - 11.00 K/uL [facility] RBC 4.64 4.00 - 5.20 M/uL [facility] HGB 13.7 12.0 - 16.0 g/dL [facility] HCT 41.8 36.0 - 46.0 % [facility] PLT 207 150 - 450 K/uL [facility] MCV 90.1 80.0 - 100.0 fL [facility] MCH 29.5 27.0 - 31.0 pg [facility] MCHC 32.8 32.0 - 36.0 g/dL [facility] RDW 12.4 11.5 - 14.5 % [facility] MPV 8.8 8.4 - 12.0 fL [facility] NRBC 0.00 0.00 /100 WBCs [facility] ABSOLUTE NRBC 0.00 0.00 K/uL [facility] DIFF METHOD Auto [facility] NEUTS 67.1 48.0 - 76.0 % [facility] LYMPHS 21.5 18.0 - 41.0 % [facility] MONOS 8.8 4.0 - 11.0 % [facility] EOS 1.5 0.0 - 5.0 % [facility] BASOS 0.9 0.0 - 1.5 % [facility] Granulocytes, immature (%) 0.2 0.0 - 0.9 % [facility] ABSOLUTE NEUTS 3.12 1.92 - 7.60 K/uL [facility] ABSOLUTE LYMPHS 1.00 0.72 - 4.10 K/uL [facility] ABSOLUTE MONOS 0.41 0.16 - 1.10 K/uL [facility] ABSOLUTE EOS 0.07 0.00 - 0.50 K/uL [facility] ABSOLUTE BASOS 0.04 0.00 - 0.15 K/uL [facility] Granulocytes, immature 0.01 0.00 - 0.09 K/uL [facility] Blood 04/10/2025 10:5 6 AM EDT 04/10/2025 11:01 AM EDT us Daylin Ugarte MD LAB BLOOD BKR ORDERABLES Final Result [facility] [address] [place] [address] * Complement C3 (04/10/2025 10:56 AM EDT) C3 133 81 - 157 mg/dl [facility] Blood 04/10/2025 10:5 6 AM EDT 04/10/2025 11:01 AM EDT us Daylin Ugarte MD LAB BLOOD BKR ORDERABLES Final Result Performing Organization Address City/[facility] Co de Phone Number [address] [address] * Complement C4 (04/10/2025 10:56 AM EDT) C4 18 12 - 39 mg/dL [facility] Blood 04/10/2025 10:5 6 AM EDT 04/10/2025 11:01 AM EDT us Daylin Ugarte MD LAB BLOOD BKR ORDERABLES Final Result Performing Organization Address City/[facility]/ZIP Co de Phone Number [address] [address] * C-Reactive Protein (04/10/2025 10:56 AM EDT) C REACTIVE PROTEIN <3.0 0.0 - 4.0 mg/L [facility] Blood 04/10/2025 10:5 6 AM EDT 04/10/2025 11:01 AM EDT us Daylin Ugarte MD LAB BLOOD BKR ORDERABLES Final Result Performing Organization Address City/State/[facility] Co de Phone Number [address] [address] * CPK (creatine kinase) (04/10/2025 10:56 AM EDT) CREATINE KINASE 97 21 - 215 U/L [facility] Blood 04/10/2025 10:5 6 AM EDT 04/10/2025 11:01 AM EDT us Daylin Ugarte MD LAB BLOOD BKR ORDERABLES Final Result Performing Organization Address [facility] Co de Phone Number [address] [address] * DXA Screening (11/20/2024 11:43 AM EDT) Anatomical Region Laterality Modality Bone Density Bone Density us Daylin Ugarte MD IMG BD BONE DENSITY DEXA Final Result * TSH with reflex (10/08/2024 1:27 PM EDT) Pathologist [facility] TSH 1.43 0.27 - 4.20 uIU/mL [facility] Blood 10/08/2024 1:27 PM EDT 10/08/2024 1:28 PM EDT Result Nora Ugarte MD LAB BLOOD BKR ORDERABLES Final Result Performing Organization Address [facility]/ZIP Co de Phone Number [address] [address] * HM MAMMOGRAPHY FOR RESULT ENTRY ONLY (05/29/2023 11:11 AM EST) us Nella Dyson MD HEALTH MAINTENANCE Final Result from Last 3 Months or Most Recently Relevant to Health Maintenance Insurance MEDICARE PART A & B MEDICARE PART A & B MEDICARE PART A & B MEDICARE PART A & B MEDICARE PART A & B MEDICARE PART A & B MEDICARE PART A & B MEDICARE PART A & B MEDICARE PART A & B Care Teams Ambulatory Services Representative Relationship Specialty Start Date End Date Ari Jean MD [address] [place] [address] [place] [address] PCP - General Internal Medicine 05/20/19 Additional Source Comments The information contained in this document represents components of the legal health record. It is not the complete legal health record.[facility]
== END 2025-06-17 08:38 | disposition home or self-care (01) ==
LOC: HO.MAMMO 08:37
PROVIDERS: PCP Internal Medicine; Visit Provider Internal Medicine
DX: Z12.31 Encounter for screening mammogram for malignant neoplasm of breast (principal)
CPT/HCPCS: 77063; 77067

== ENCOUNTER → 2025-06-17 09:00 | Outpatient (BNV) | payer MEDICARE, SELFPAY | PROVIDERS: PCP Internal Medicine; Visit Provider Internal Medicine | DX: Z12.31 Encounter for screening mammogram for malignant neoplasm of breast (principal) | CPT/HCPCS: 77063; 77067 ==